=== PATIENT | male | born 1975 | race Caucasian/White ===

== ENCOUNTER 2022-06-16 16:45 | Inpatient (IN) | payer MEDICAID ==
[~2022-06-16] VITALS: Ht 172.7 cm; Wt 45.4 kg
--- NOTE | 2022-06-16 16:59 | NUR ---
SOB WITH COUGH AND CONGESTION X 2 DAYS
--- NOTE | 2022-06-16 17:10 | NUR ---
RT AT BEDSIDE
--- NOTE | 2022-06-16 17:30 | NUR ---
PT W/ LFA FISTULA FOR HEMODIALYSIS
[2022-06-16 17:34] LABS: BASOPHILS # (AUTO) 0.1 K/uL (0.0-0.2); BASOPHILS % (AUTO) 0.4 % (0.0-2.0); EOSINOPHILS % (AUTO) 0.9 % (0.0-6.0); HEMATOCRIT 25 % (39-51); HEMOGLOBIN 8.1 g/dL (13.5-17.5); LYMPHOCYTES # (AUTO) 1.3 K/uL (0.8-4.8); LYMPHOCYTES % (AUTO) 7.2 % (20.0-44.0); MEAN CORPUSCULAR HGB CONC 32 g/dl (31.0-36.0); MEAN CORPUSCULAR VOLUME 88 fL (80-96); MONOCYTES # (AUTO) 0.6 K/uL (0.1-1.30); MONOCYTES % (AUTO) 3.3 % (2.0-12.0); NEUTROPHILS # (AUTO) 15.3 K/uL (1.8-8.9); NEUTROPHILS % (AUTO) 88.2 % (43.0-81.0); PLATELET COUNT (AUTO) 187 K/uL (150-450); RED BLOOD CELL COUNT(AUTO) 2.86 MIL/uL (4.5-6.0); WHITE BLOOD COUNT (AUTO) 17.3 K/uL (4.3-11.0)
[2022-06-16 17:51] LABS: CALCIUM, SERUM 9.7 mg/dL (8.5-10.1); CARBON DIOXIDE 26 mmol/L (21-32); CHLORIDE 96 mmol/L (98-107); GLUCOSE 112 mg/dL (74-106); SODIUM SERUM 135 mmol/L (136-145); UREA NITROGEN, BLOOD 73 mg/dL (7-18)
[2022-06-16 18:03] LABS: ALANINE AMINOTRANSFERASE 13 U/L (12-78); ALBUMIN 3.7 g/dL (3.4-5.0); ALKALINE PHOSPHATASE 111 U/L (46-116); ASPARTATE AMINOTRANSFERASE 14 U/L (15-37); BILIRUBIN,DIRECT 0.2 mg/dL (0.0-0.2); BILIRUBIN,TOTAL 0.7 mg/dL (0.2-1.0)
--- NOTE | 2022-06-16 18:30 | NUR ---
bipap settings tolerated by pt
--- NOTE | 2022-06-16 18:37 | NUR ---
COVID SWAB COLLECTED AND SENT TO LAB
[2022-06-16 18:58] LABS: BAND % (MANUAL) 2 % (0.0-5.0); LYMPHOCYTES % (MANUAL) 4 % (16-48); MONOCYTES % (MANUAL) 2 % (0-11.0); NEUTROPHILS % (MANUAL) 92 (42-76)
[2022-06-16] MEDS ORDERED: CEFTRIAXONE 1GM BAG (ER ONLY) 50 ML IV ONE (18:59)
[2022-06-16] MEDS ORDERED: VANCOMYCIN 1 GM in IV D5W 250 ML IV ONE (19:00)
[2022-06-16] MEDS ORDERED: CEFTRIAXONE 1GM BAG (ER ONLY) 1 GM/50 ML PIGGYBACK IV ONE (19:00)
[2022-06-16] MEDS ORDERED: ALBUTEROL FS 2.5 MG/3 ML VIAL.NEB NEB ONE (19:00)
--- NOTE | 2022-06-16 19:05 | NUR ---
FOLLOWED UP VANCOMYCIN MEDICATION W/ PHARMACY
[2022-06-16] MEDS ORDERED: ALBUTEROL FS 2.5 MG/3 ML VIAL.NEB ONE (19:37)
--- NOTE | 2022-06-16 19:39 | NUR ---
RT AT PT'S BEDSIDE FOR BREATHING TX
--- NOTE | 2022-06-16 19:40 | NUR ---
PT TIOLERATING BIPAP SETTINGS AT 97% IPAP 15 EPAP 5 RATE 15 FIO2 60%
[2022-06-16] MEDS ORDERED: VANCOMYCIN 1 GM VIAL ONE (20:01)
--- NOTE | 2022-06-16 20:31 | NUR ---
DR. KAITY RUIZ ON PHONE CALL WITH DR. LITTLE ADMITTING MD
[2022-06-16] MEDS ORDERED: MAGNESIUM HYDROXIDE 30 ML UDC PO PRN (22:00)
[2022-06-16] MEDS ORDERED: ACETAMINOPHEN 325 MG TABLET PO PRN (22:00)
[2022-06-16] MEDS ORDERED: Z GUARD REMEDY 4 OZ OINT TP PRN (22:00)
[2022-06-16] MEDS ORDERED: MAG HYDROX/AL HYDROX/SIMETH 30 ML UDC PO PRN (22:00)
[2022-06-16] MEDS ORDERED: HYDROCODONE/APAP 5/325MG TABLET PO PRN (22:00)
[2022-06-16] MEDS ORDERED: ZOLPIDEM TARTRATE 5 MG TABLET PO PRN (22:00)
[2022-06-16] MEDS ORDERED: ONDANSETRON HCL/PF 4 MG/2 ML VIAL IVP PRN (22:00)
--- NOTE | 2022-06-16 22:40 | NUR ---
REPORT GIVEN TO [facility] RN FOR CHANI
--- NOTE | 2022-06-16 22:48 | NUR ---
RN INITIAL NOTE PT ARRIVED TO UNIT VIA GURNEY, ABLE TO AMBULATE FROM GURNEY TO BED. PT RECEIVED ON BIPAP WITH SETTING 15/5, RATE 15, FIO2 60%; WITH CHANGE TO 18/10, SAME FIO2 AND RATE WITH O2SAT OF 98%. APPEARS SOB AND NOTED TO HAVE NON-PRODUCTIVE COUGH; NO OTHER S/S OF RESP DISTRESS, NON-LABORED AND EQUAL BREATHING. PT ATTACHED TO BEDSIDE MONITOR, ST WITH HR OF 105. SKIN ASSESSED WITH NO WOUNDS NOTED. IV ACCESS ON RAC 18G AND RFA 18G INTACT AND PATENT, FLUSHES EASILY WITH NO RESISTANCE; NO MEDS/FLUIDS INFUSING THROUGH. LFA AV FISTULA INTACT AND PATENT, THRILL PRESENT AND BRUIT AUSCULTATED. HD NURSE AT BEDSIDE FOR EMERGENCY HD. BED IN LOWEST POSITION, CALL LIGHT WITHIN REACH, SIDE RAILS UP X2. WILL INITIATE PLAN OF CARE.
--- NOTE | 2022-06-16 22:56 | NUR ---
PT TRANSFERRED TO ICU 256 VIA ACLS PROTOCOL WITH RT. ALL BELONGINGS AND CELLPHONE WITH PT.
[2022-06-16 23:00] VITALS: BP 206/121
[2022-06-16] MEDS ORDERED: CLON0.3T MT (23:02)
[2022-06-16] MEDS ORDERED: HYDR100T27 MT (23:02)
--- NOTE | 2022-06-16 23:33 | NUR ---
RT BIPAP settings changed per MD orders due to Increased work of breathing and SpO2 89%. IPAP 18 and EPAP 10. SpO2 improved to 93%. Will cont to monitor. Addendum: 06/17/22 at 0152 by GURMEET OLIVAS RT Amended: Links added.
[2022-06-17] VITALS (39 sets, daily range): BP systolic 111–213; BP diastolic 58–130
--- NOTE | 2022-06-17 00:18 | NUR ---
RN NOTE PT'S BP NOTED TO BE 206/121 WITH HR OF 107. ORDER RECEIVED FROM [facility]NA[facility] FOR HYDRALAZINE 10 MG IV Q4H PRN SBP >160. ORDER OBTAINED AND CARRIED OUT.
[2022-06-17] MEDS: hydrALAZINE HCL IV 20 MG VIAL IV PRN ×4 (00:20→21:35)
--- NOTE | 2022-06-17 01:42 | NUR ---
RN NOTE BP STILL NOTED TO BE ELEVATED AFTER HYDRALAZINE WITH BP OF 199/116. RECONCILED MED LIST CHECKED, PT NOTED TO TAKE CLONIDINE 0.3 MG TID AT HOME. ORDER OBTAINED FROM [facility] TO CONTINUE. ORDER CARRIED OUT.
[2022-06-17] MEDS: CLONIDINE HCL 0.1 MG TABLET PO SCH ×4 (01:43→20:25)
[2022-06-17 04:58] LABS: BASOPHILS % (AUTO) 0.3 % (0.0-2.0); EOSINOPHILS % (AUTO) 0.4 % (0.0-6.0); HEMATOCRIT 22 % (39-51); HEMOGLOBIN 7.2 g/dL (13.5-17.5); LYMPHOCYTES # (AUTO) 0.8 K/uL (0.8-4.8); LYMPHOCYTES % (AUTO) 4.6 % (20.0-44.0); MEAN CORPUSCULAR HGB CONC 32 g/dl (31.0-36.0); MEAN CORPUSCULAR VOLUME 89 fL (80-96); MONOCYTES # (AUTO) 0.7 K/uL (0.1-1.30); NEUTROPHILS % (AUTO) 90.7 % (43.0-81.0); PLATELET COUNT (AUTO) 128 K/uL (150-450); RED BLOOD CELL COUNT(AUTO) 2.53 MIL/uL (4.5-6.0); WHITE BLOOD COUNT (AUTO) 16.5 K/uL (4.3-11.0)
[2022-06-17 05:24] LABS: CALCIUM, SERUM 9.1 mg/dL (8.5-10.1); MAGNESIUM 2.1 mg/dL (1.8-2.4); PHOSPHORUS 6.2 mg/dL (2.5-4.9); POTASSIUM 5.5 mmol/L (3.5-5.1)
[2022-06-17 05:41] LABS: CREATININE 7.8 mg/dL (0.6-1.3)
--- NOTE | 2022-06-17 05:54 | NUR ---
RN NOTE PT'S BP REMAINS HIGH AFTER 2 DOSES GIVEN OF CLONIDINE AND HYDRALAZINE EACH. PT NOTED TO BE RESTLESS AND MOVING AROUND A LOT IN BED WITH HR HIGH 160. ERIBERTO LITTLE NOTIFIED AND ORDERED ATIVAN 1 MG IV ONCE. ORDER CARRIED OUT.
[2022-06-17] MEDS ORDERED: LORAZEPAM INJ 2 MG/ML VIAL IV ONE (06:00)
--- NOTE | 2022-06-17 06:32 | NUR ---
RN NOTE PT RESTLESS AND HR HIGH 166. ATIVAN 1 MG ONCE ADMINISTERED TO PT.
--- NOTE | 2022-06-17 06:53 | NUR ---
DRAWER IN HAND CLOSING NOTE PT REMAINS IN BED, AWAKE, A&O X4, APPEARS RESTLESS. CONTINUES TO BE ON BIPAP WITH SETTING 18/10, RATE 15, FIO2 40%; CONTINUES TO BE SOB AND TACHYPNEIC WITH O2SAT RANGING 98%-100%; NO OTHER S/S OF RESP DISTRESS, NON-PRODUCTIVE; NON-LABORED AND EQUAL BREATHING. ATTACHED TO BEDSIDE MONITOR, ST WITH HR HIGH 166. LEFT AV FISTULA INTACT WITH THRILL PALPABLE AND BRUIT AUSCULTATED. IV ACCESS ON RAC AND RFA 18G INTACT AND PATENT, FLUSHES EASILY WITH NO RESISTANCE; NO MEDS/FLUIDS INFUSING THROUGH. ALL DUE MEDS ADMINISTERED DURING THE NIGHT. BED IN LOWEST POSITION, CALL LIGHT WITHIN REACH, SIDE RAILS UP X3. WILL ENDORSE TO DAYSHIFT NURSE TO CONTINUE CARE.
[2022-06-17] MEDS: PANTOPRAZOLE 40 MG TABLET.DR PO SCH (08:57)
[2022-06-17] MEDS ORDERED: VANCOMYCIN POST DIALYSIS 500MG IV PRN ×2 (10:00)
[2022-06-17] MEDS: hydrALAZINE HCL 50 MG TABLET PO SCH (17:25)
[2022-06-17] MEDS: SEVELAMER CARBONATE 800 MG TABLET PO SCH ×2 (17:25→18:19)
[2022-06-17] MEDS: CEFEPIME 1 GM in IV D5W 50 ML IV SCH (18:16)
[2022-06-17] MEDS: LABETALOL 20 MG/4 ML VIAL IV PRN ×2 (18:47→22:47)
[2022-06-17] MEDS ORDERED: CEFTRIAXONE 1 G in IV D5W 50 ML IV SCH (19:00)
[2022-06-17] MEDS ORDERED: NITROGLYCERIN 0.4 MG/TAB BOTTLE SL PRN (19:00)
[2022-06-17] MEDS ORDERED: VANCOMYCIN 1 GM in IV D5W 250ml IV ONE (20:00)
--- NOTE | 2022-06-17 20:47 | NUR ---
REGISTERED NURSE BEHAVIORAL HEALTH OPENING NOTE PT RECEIVED IN BED, AWAKE, A&O X4, CALM, COOPERATIVE. PT ON BIPAP WITH SETTINGS OF 18/10, RATE 15, FIO2 30%; CURRENT O2SAT OF 99%; NO S/S OF RESP DISTRESS, NO SOB OR COUGH, NON-LABORED AND EQUAL BREATHING. PT ATTACHED TO BEDSIDE MONITOR, SR WITH HR OF 92. IV ACCESS ON RAC AND RFA 18G INTACT AND PATENT, FLUSHES EASILY WITH NO RESISTANCE. LEFT AV FISTULA INTACT, THRILL PALPATED AND BRUIT AUSCULTATED. BED IN LOWEST POSITION, CALL LIGHT WITHIN REACH, SIDE RAILS UP X3. WILL CONTINUE TO MONITOR THROUGHOUT THE NIGHT.
--- NOTE | 2022-06-17 21:36 | NUR ---
RN NOTE PT'S BP 192/129, HR 82. PT ADMINISTERED HYDRALAZINE 10 MG IV. WILL MONITOR FOR EFFECTIVENESS.
--- NOTE | 2022-06-17 22:48 | NUR ---
RN NOTE BP NOTED TO BE 197/117, HR 80. PT ADMINISTERED LABETALOL 10 MG IV. WILL MONITOR FOR EFFECTIVENESS.
[2022-06-18] VITALS (40 sets, daily range): BP systolic 122–225; BP diastolic 60–119
[2022-06-18] MEDS: hydrALAZINE HCL IV 20 MG VIAL IV PRN ×3 (01:35→15:20)
--- NOTE | 2022-06-18 01:35 | NUR ---
RN NOTE BP 192/115, HR 84. HYDRALAZINE 10 MG IV ADMINISTERED. WILL MONITOR FOR EFFECTIVENESS.
[2022-06-18] MEDS: LABETALOL 20 MG/4 ML VIAL IV PRN ×2 (03:24→08:29)
--- NOTE | 2022-06-18 03:25 | NUR ---
RN NOTE BP 172/115, HR 77. LABETALOL 10 MG IV ADMINISTERED. WILL MONITOR FOR EFFECTIVENESS.
[2022-06-18 04:17] LABS: BASOPHILS % (AUTO) 0.5 % (0.0-2.0); EOSINOPHILS % (AUTO) 1.4 % (0.0-6.0); LYMPHOCYTES # (AUTO) 1.2 K/uL (0.8-4.8); MEAN CORPUSCULAR HGB CONC 33 g/dl (31.0-36.0); MEAN CORPUSCULAR VOLUME 88 fL (80-96); MONOCYTES # (AUTO) 0.4 K/uL (0.1-1.30); MONOCYTES % (AUTO) 4.8 % (2.0-12.0); NEUTROPHILS # (AUTO) 7.4 K/uL (1.8-8.9); NEUTROPHILS % (AUTO) 80.3 % (43.0-81.0); PLATELET COUNT (AUTO) 80 K/uL (150-450); WHITE BLOOD COUNT (AUTO) 9.2 K/uL (4.3-11.0)
[2022-06-18 04:23] LABS: HEMATOCRIT 20 % (39-51); HEMOGLOBIN 6.7 g/dL (13.5-17.5)
[2022-06-18 04:28] LABS: CREATININE 6.9 mg/dL (0.6-1.3)
[2022-06-18 04:30] LABS: POTASSIUM 6.2 mmol/L (3.5-5.1)
--- NOTE | 2022-06-18 04:31 | NUR ---
RN NOTE CRITICALS RECEIVED FROM LAB, HGB 6.7, HCT 20, POTASSIUM 6.2 AND INFORMED JOSE LOPEZ PT IS A HD PT AND NO SIGNS OF BLEEDING NOTED. AWAITING RESPONSE.
--- NOTE | 2022-06-18 04:58 | NUR ---
RN NOTE ORDERS RECEIVED FROM JOSE LOPEZ. 1 UNIT PRBC, KAYEXALATE 15 GM, D50, REGULAR INSULIN 8 UNITS IVP, 1 AMPULE SODIUM BICARB. ORDERS CARRIED OUT. Addendum: 06/18/22 at 0545 by PRINCESS VERONA GLEZ SODIUM BICARB 50 MEQ. DISREGARD D50
[2022-06-18] MEDS: CLONIDINE HCL 0.1 MG TABLET PO SCH ×2 (05:03→13:18)
[2022-06-18] MEDS ORDERED: INSULIN REGULAR, HUMAN 100 UNIT/ML 3 ML VIAL IV ONE (05:15)
[2022-06-18] MEDS ORDERED: SODIUM POLYSTYRENE SULFONATE 15 G/60 ML BOTTLE PO ONE (05:15)
[2022-06-18] MEDS ORDERED: SODIUM BICARBONATE SYR 50 MEQ/50 ML DISP.SYRIN IV ONE (05:15)
--- NOTE | 2022-06-18 05:45 | NUR ---
RN NOTE FOR REGULAR INSULIN, APPROVALS BOTH RECEIVED FROM TONI HUFFMAN NURSE AND [facility] CONSULTANT. Addendum: 06/18/22 at 0546 by PRINCESS VERONA GLEZ TO USE OTHER PT'S REGULAR INSULIN FOR NOW.
--- NOTE | 2022-06-18 06:53 | NUR ---
FIGHTER PILOT CLOSING NOTE PT REMAINS IN BED, AWAKE, A&O X4,SLEPT INTERMITTENTLY THROUGHOUT THE NIGHT. CONTINUES TO BE ON BIPAP WITH SETTINGS OF 18/10, RATE 15, FIO2 30%; O2SAT RANGED FROM 98%-100%; NO S/S OF RESP DISTRESS, NO SOB OR COUGH, NON-LABORED AND EQUAL BREATHING. ATTACHED TO BEDSIDE MONITOR, SR WITH HR RANGING FROM 74- 92 WITH SBP HIGH 197. IV ACCESS ON RAC AND RFA 18G INTACT AND PATENT, FLUSHES EASILY WITH NO RESISTANCE; NO MEDS/FLUIDS INFUSING THROUGH. LEFT AV FISTULA INTACT, THRILL PALPATED AND BRUIT AUSCULTATED. ALL DUE MEDS ADMINISTERED DURING THE NIGHT. BED IN LOWEST POSITION, CALL LIGHT WITHIN REACH, SIDE RAILS UP X3. WILL ENDORSE TO DAYSHIFT NURSE TO CONTINUE CARE.
--- NOTE | 2022-06-18 07:20 | NUR ---
FIRE PREVENTION CAPTAIN OPENING NOTES: RECEIVED PATIENT IN JOE ON BIPAP WITH SETTING 18/10, RATE 15, FIO2 30%; WITH O2SAT OF 98%. NO SOB NOTED ; NO OTHER S/S OF RESP DISTRESS, NON-LABORED AND EQUAL BREATHING. PT ATTACHED TO BEDSIDE MONITOR, SR WITH HR OF 75. SKIN ASSESSED WITH NO WOUNDS NOTED. IV ACCESS ON RAC 18G AND RFA 18G INTACT AND PATENT, FLUSHES EASILY WITH NO RESISTANCE; NO MEDS/FLUIDS INFUSING THROUGH. LFA AV FISTULA INTACT AND PATENT, THRILL PRESENT AND BRUIT AUSCULTATED. PT ASKED TO USE THE BATHROOM RT PLACED TOSHA ON NASAL CANNULA AND ASSISTED HIM TO THE COMMODE, NOTED WITH WATERY BM, MANAGER BANQUET RN SAID IS DUE TO KAYEXALATE HE RECEIVED FOR HIS HYPERKALEMIA. BED IN LOWEST POSITION, CALL LIGHT WITHIN REACH, SIDE RAILS UP X2. WILL INITIATE PLAN OF CARE.
[2022-06-18] MEDS: SEVELAMER CARBONATE 800 MG TABLET PO SCH ×2 (07:37→13:17)
[2022-06-18] MEDS: PANTOPRAZOLE 40 MG TABLET.DR PO SCH (07:37)
--- NOTE | 2022-06-18 07:45 | NUR ---
RN NOTES: NOTED BP 205/114, HYDRALAZINE 10 MG IV GIVEN AD ORDERED NEEDED WILL MONITOR
[2022-06-18 08:56] LABS: ABG BASE EXCESS -1.4 mmol/L; ABG OXYGEN SATURATION 94.6 % (92.0-98.5); ABG PCO2 48.2 mmHg (35.0-45.0); ABG PO2 83.8 mmHg (75.0-100.0); AaDO2 73.5 mmHg; COHb 1.3 % (0.5-1.5); MetHb 0.3 % (0.0-1.5); O2Hb 93.1 % (94.0-97.0); SITE, ABG Right Radial; VENT MODE, BG BIPAP 18/5 R 16 30%
[2022-06-18] MEDS: hydrALAZINE HCL 50 MG TABLET PO SCH ×2 (09:00→13:18)
--- NOTE | 2022-06-18 09:00 | NUR ---
RN NOTES: PT NOT AWAKE,ON BIPAP UNABLE TO SWALLOW HIS MEDICINE
[2022-06-18] MEDS: PROPOFOL 100 ML IV PRN ×2 (09:49→17:33)
[2022-06-18] MEDS ORDERED: SODIUM POLYSTYRENE SULF. PWD 15 GM UDC PO ONE (10:30)
[2022-06-18 10:45] LABS: ABG BASE EXCESS -0.6 mmol/L; ABG OXYGEN SATURATION 99.7 % (92.0-98.5); ABG PCO2 43.9 mmHg (35.0-45.0); ABG PH 7.369 (7.350-7.450); ABG PO2 381.1 mmHg (75.0-100.0); MetHb 0.1 % (0.0-1.5); O2Hb 98.6 % (94.0-97.0); SITE, ABG Right Femoral
--- NOTE | 2022-06-18 11:08 | NUR ---
RN NOTES: PT WENT TO HAVE CT SCAN OF BRAIN DONE ACOMPANIED WITH CHARGE NURSE DAWNA AND RT TUCKER
--- NOTE | 2022-06-18 11:45 | NUR ---
PATIENT SBP REMAINS >200. NTG DRIP ORDER PER DR. COKER/DR. CARDOZA. INITIATED PER PROTOCOL.
[2022-06-18] MEDS ORDERED: NTG 50 MG/D5W250 ML BOTTL 250 ML IV PRN (12:00)
[2022-06-18 12:17] LABS: BASOPHILS % (MANUAL) 0 % (0.0-2.0); EOSINOPHILS % (MANUAL) 2 % (0-4); LYMPHOCYTES % (MANUAL) 11 % (16-48); MONOCYTES % (MANUAL) 5 % (0-11.0); NEUTROPHILS % (MANUAL) 82 (42-76)
[2022-06-18] MEDS: NITROGLYCERIN 30 GM TUBE TP SCH ×3 (12:55→23:26)
--- NOTE | 2022-06-18 12:57 | NUR ---
RN NOTES: JAVA TECHNICAL ARCHITECT OVIDIO FINISHED DIALYSIS AFTER 1.5 HOUR DUE TO HIGH BP 240/140.1 UNIT RBC WAS GIVEN , 1 LITER OUT. AFTER DIALYSIS BP NOTED TO BE 176/86
[2022-06-18] MEDS ORDERED: ETOMIDATE 2 MG/ML VIAL IV ONE (14:07)
[2022-06-18] MEDS ORDERED: ROCURONIUM BROMIDE 50 MG/5 ML IV ONE (14:07)
--- NOTE | 2022-06-18 15:00 | NUR ---
RN NOTES: SPOKE TO IMI PHARMACIST PT HAD DIALYSIS BUT VANCO RANDOM WAS 28 WHO SAID DO NOT GIVE ANY DOSE TODAY
--- NOTE | 2022-06-18 15:54 | NUR ---
RN NOTES: SEEN BY DR LIZAMA NEUROLOGIST WITH ORDER TO REPEAT CT HEAD, SAID BRAINS SEEMS SWOLLEN
[2022-06-18] MEDS ORDERED: PHARMACY TO CHANGE PO MEDS TO GT/NG XX PRN (16:00)
[2022-06-18] MEDS ORDERED: MAG HYDROX/AL HYDROX/SIMETH 30 ML UDC GT PRN (16:30)
[2022-06-18] MEDS ORDERED: MAGNESIUM HYDROXIDE 30 ML UDC GT PRN (16:30)
[2022-06-18] MEDS ORDERED: NIFEdipine XL (30MG) 30 MG TAB PO SCH (17:00)
[2022-06-18] MEDS: SEVELAMER CARBONATE 800 MG POWD.PACK GT SCH (17:08)
[2022-06-18] MEDS: hydrALAZINE HCL 50 MG TABLET GT SCH (17:09)
[2022-06-18] MEDS: CEFEPIME 1 GM in IV D5W 50 ML IV SCH (17:15)
[2022-06-18] MEDS: LABETALOL HCL (100MG) 100 MG TABLET PO SCH (18:00)
--- NOTE | 2022-06-18 18:00 | NUR ---
RN NOTES: SISTER ROWAN AND ALICIA MURRAY PICKED UP ALL BELONGING INCLUDING CELL PHONE
--- NOTE | 2022-06-18 19:30 | NUR ---
RECEIVED PATIENT SEDATED, WITH ETT CONNECTED TO VENT SETTING AC 16, TV 450, PEEP 5,FIO2 IS 50%. SETTING PRESCRIBED, NO SOB NOTED. IV ACCESS ON RAC #18, RFA #18, BRITTNEY ML #18, LT AV FISTULA IN PLACE. PROPOFOL INFUSING AT 40 MCG/KG/MIN, NITORGLYCERINE DRIP INFUSING AT 80 MCG/MIN. SAFETY MEASURES IN PLACE. WILL CONTINUE PLAN OF CARE.
--- NOTE | 2022-06-18 19:38 | NUR ---
RN CLOSING NOTE PATIENT IS SEDATED, PROPOFOL RUNNING AT 40 MCG/KG/MIN, WITH ETT CONNECTED TO VENT SETTING AC 16,VT 450, PEEP 5,FIO2 IS 50%.NO SOB NOTED. PRESCRIBED,. NITORGLYCERINE DRIP RUNNING AT 80 MCG/MIN, ALL DUE MEDS GIVEN MD ORDERED TURNED AND REPOSITIONED EVERY 2 HOURS, KEPT CLEAN AND DRY ALL THE TIME, KEPT HEAD OF THE BED ELEVATED ALL THE TIME, ALL SAFETY MEASURES IN PLACE. ENDORSED NEXT COMING SHIFT FOR CONTINUITY OF CARE.
[2022-06-18] MEDS: CLONIDINE HCL 0.1 MG TABLET GT SCH (21:07)
[2022-06-18] MEDS: NTG 50 MG/D5W250 ML BOTTL 250 ML IV PRN (22:10)
[2022-06-19] VITALS (96 sets, daily range): BP systolic 103–171; BP diastolic 49–115
[2022-06-19] MEDS: PROPOFOL 100 ML IV PRN ×6 (00:16→22:23)
[2022-06-19 04:23] LABS: BASOPHILS % (AUTO) 0.1 % (0.0-2.0); EOSINOPHILS % (AUTO) 1.6 % (0.0-6.0); HEMATOCRIT 21 % (39-51); LYMPHOCYTES # (AUTO) 0.5 K/uL (0.8-4.8); LYMPHOCYTES % (AUTO) 5.3 % (20.0-44.0); MEAN CORPUSCULAR HGB CONC 34 g/dl (31.0-36.0); MEAN CORPUSCULAR VOLUME 87 fL (80-96); MONOCYTES # (AUTO) 0.5 K/uL (0.1-1.30); MONOCYTES % (AUTO) 4.9 % (2.0-12.0); NEUTROPHILS # (AUTO) 9.1 K/uL (1.8-8.9); NEUTROPHILS % (AUTO) 88.1 % (43.0-81.0); PLATELET COUNT (AUTO) 60 K/uL (150-450); WHITE BLOOD COUNT (AUTO) 10.4 K/uL (4.3-11.0)
[2022-06-19 04:31] LABS: CALCIUM, SERUM 8.8 mg/dL (8.5-10.1); CREATININE 6.9 mg/dL (0.6-1.3); POTASSIUM 4.2 mmol/L (3.5-5.1)
[2022-06-19] MEDS: NITROGLYCERIN 30 GM TUBE TP SCH ×4 (05:40→23:16)
[2022-06-19] MEDS: CLONIDINE HCL 0.1 MG TABLET GT SCH ×3 (05:40→20:54)
--- NOTE | 2022-06-19 06:56 | NUR ---
PATIENT SEDATED, WITH ETT CONNECTED TO VENT SETTING AC 16, TV 450, PEEP 5,FIO2 IS 50%. SETTING PRESCRIBED, NO SOB NOTED. IV ACCESS ON RAC #18, RFA #18, BRITTNEY ML #18, LT AV FISTULA IN PLACE. PROPOFOL INFUSING AT 50 MCG/KG/MIN, NITORGLYCERINE DRIP INFUSING AT 55 MCG/MIN. ALL DUE MEDS GIVEN MD ORDERED TURNED AND REPOSITIONED EVERY 2 HOURS, KEPT CLEAN AND DRY ALL THE TIME, KEPT HEAD OF THE BED ELEVATED ALL THE TIME, SAFETY MEASURES MAINTAINED. WILL ENDORSED TO NEXT SHIFT NURSE FOR CONTINUITY OF CARE.
--- NOTE | 2022-06-19 08:00 | NUR ---
rn notes received patient sedated Diprivan 50mcg/kg/min, iv access on michael midline intact. infusing nitroglycerin 55 mcg/kg/min, and tko @10ml/hr. patient has no acute respiratory distress, tolerating ETT setting well ac-16, tv-450, fio2-50, p-5. ngt intact, due medication administered, assist turn and reposition q 2 hr, suction, mouth care done . patient has av shunt on left arm intact. rechecked bilateral restrain ntact for circulation q 2 hr. will follow up.
[2022-06-19 08:13] LABS: BAND % (MANUAL) 9 % (0.0-5.0); EOSINOPHILS % (MANUAL) 1 % (0-4); LYMPHOCYTES % (MANUAL) 6 % (16-48); MONOCYTES % (MANUAL) 4 % (0-11.0); NEUTROPHILS % (MANUAL) 80 (42-76)
--- NOTE | 2022-06-19 09:00 | NUR ---
rn notes no sedation vacation today per Dr Chanel.
[2022-06-19] MEDS: SEVELAMER CARBONATE 800 MG POWD.PACK GT SCH ×3 (09:41→18:18)
[2022-06-19] MEDS: LABETALOL HCL (100MG) 100 MG TABLET PO SCH ×2 (09:42→18:28)
[2022-06-19] MEDS: hydrALAZINE HCL 50 MG TABLET GT SCH ×3 (09:43→18:18)
[2022-06-19] MEDS: PANTOPRAZOLE 40 MG/PACK PACK NG SCH (10:18)
[2022-06-19] MEDS: HYDROCODONE/APAP 5/325MG TABLET GT PRN (11:38)
--- NOTE | 2022-06-19 11:38 | NUR ---
rn notes administered narco 5/325 mg po prn for generalized pain. bp 103/52, p-74, r-23. also titrated nitroglycerine per protocol .
--- NOTE | 2022-06-19 13:50 | NUR ---
RN NOTES HOSPITALIST EDISON DNP AT BEDSIDE AND PATIENTS FAMILY WEEL EXPLAIN PATIENT CONDITION, AND PLAN OF CARE. TITRATED DIPRIVAN, AND NITROGLYCERIN PER PROTOCOL.
[2022-06-19] MEDS: NTG 50 MG/D5W250 ML BOTTL 250 ML IV PRN (14:11)
--- NOTE | 2022-06-19 15:32 | NUR ---
RN NOTES GET NGTF NEPRO @35ML/HR PER DIETITIAN'S ORDER. ORDER TAKEN AND CARRIED OUT.
[2022-06-19] MEDS ORDERED: NEPRO 1,000 ML BOTTLE GT SCH (17:00)
[2022-06-19] MEDS: NEPRO 1,000 ML BOTTLE GT SCH (18:12)
[2022-06-19] MEDS: CEFEPIME 1 GM in IV D5W 50 ML IV SCH (18:17)
--- NOTE | 2022-06-19 18:30 | NUR ---
RN NOTES PM CARE DONE, SUCTION, MOUTH CARE , DUE MEDICATION ADMINISTERED, STARTED NGT FEEDING NEPRO @35ML/HR. INFUSING DIPRIVAN 65MCG/KG/MIN, AND NITROGLYCERINE 20MCG/KG/MIN. ASSIST TURN AND REPOSTION Q 2 HR. NO URINE OUTPUT. FAMILY NEXT TO THE BED. ENDORSED ONCOMING NURSE CHANI.
--- NOTE | 2022-06-19 19:30 | NUR ---
PATIENT SEDATED, WITH ETT CONNECTED TO VENT SETTING AC 16, TV 450, PEEP 5,FIO2 IS 40%. SETTING PRESCRIBED, NO SOB NOTED. IV ACCESS ON RAC #18, RFA #18, BRITTNEY ML #18, LT AV FISTULA IN PLACE. PROPOFOL INFUSING AT 65 MCG/KG/MIN, NITORGLYCERINE DRIP INFUSING AT 20 MCG/MIN. ALL DUE MEDS GIVEN MD ORDERED TURNED AND REPOSITIONED EVERY 2 HOURS, KEPT CLEAN AND DRY ALL THE TIME, KEPT HEAD OF THE BED ELEVATED ALL THE TIME, SAFETY MEASURES IN PLACE. WILL CONTINUE PLAN OF CARE.
[2022-06-20] VITALS (92 sets, daily range): BP systolic 118–176; BP diastolic 57–89
[2022-06-20] MEDS: PROPOFOL 100 ML IV PRN ×5 (01:46→19:55)
[2022-06-20] MEDS: HYDROCODONE/APAP 5/325MG TABLET GT PRN (04:03)
[2022-06-20] MEDS: CLONIDINE HCL 0.1 MG TABLET GT SCH ×3 (04:03→21:02)
[2022-06-20 04:42] LABS: BASOPHILS % (AUTO) 0.2 % (0.0-2.0); EOSINOPHILS % (AUTO) 5.5 % (0.0-6.0); LYMPHOCYTES # (AUTO) 0.9 K/uL (0.8-4.8); LYMPHOCYTES % (AUTO) 9.4 % (20.0-44.0); MEAN CORPUSCULAR HGB CONC 34 g/dl (31.0-36.0); MEAN CORPUSCULAR VOLUME 87 fL (80-96); MONOCYTES # (AUTO) 0.7 K/uL (0.1-1.30); MONOCYTES % (AUTO) 7.2 % (2.0-12.0); NEUTROPHILS # (AUTO) 7.2 K/uL (1.8-8.9); NEUTROPHILS % (AUTO) 77.7 % (43.0-81.0); PLATELET COUNT (AUTO) 80 K/uL (150-450); RED BLOOD CELL COUNT(AUTO) 2.24 MIL/uL (4.5-6.0); WHITE BLOOD COUNT (AUTO) 9.2 K/uL (4.3-11.0)
[2022-06-20 05:06] LABS: CALCIUM, SERUM 8.8 mg/dL (8.5-10.1); HEMATOCRIT 20 % (39-51); HEMOGLOBIN 6.6 g/dL (13.5-17.5); POTASSIUM 4.5 mmol/L (3.5-5.1)
[2022-06-20 05:07] LABS: CREATININE 8.6 mg/dL (0.6-1.3)
[2022-06-20] MEDS: NITROGLYCERIN 30 GM TUBE TP SCH ×4 (05:26→23:52)
--- NOTE | 2022-06-20 05:39 | NUR ---
Hgb 6.6, Hct 20. MD notified.
--- NOTE | 2022-06-20 06:54 | NUR ---
PATIENT SEDATED, WITH ETT CONNECTED TO VENT SETTING AC 16, TV 450, PEEP 5,FIO2 IS 40%. SETTING PRESCRIBED, NO SOB NOTED. IV ACCESS ON RAC #18, RFA #18, BRITTNEY ML #18, LT AV FISTULA IN PLACE. PROPOFOL INFUSING AT 60 MCG/KG/MIN, NITORGLYCERINE DRIP INFUSING AT 10 MCG/MIN. ALL DUE MEDS GIVEN MD ORDERED TURNED AND REPOSITIONED EVERY 2 HOURS, KEPT CLEAN AND DRY ALL THE TIME, KEPT HEAD OF THE BED ELEVATED ALL THE TIME, SAFETY MEASURES MAINTAINED. WILL ENDORSE TO NEXT NURSE ON DUTY FOR CONTINUITY OF CARE.
--- NOTE | 2022-06-20 07:00 | NUR ---
RN OPENING NOTES: RECEIVED PATIENT IN BED FROM CUSTOMER EXPERT WITH VENT WITH AC 16, TV 450, FIO2 40% AND PEEP 5. WITH O2SAT OF 100%. PT ATTACHED TO BEDSIDE MONITOR, SR. SKIN ASSESSED WITH NO WOUNDS NOTED. IV ACCESS ON RAC 18G AND RFA 18G INTACT AND PATENT, FLUSHES EASILY WITH NO RESISTANCE; BRITTNEY MIDLINE PATENT. LFA AV FISTULA INTACT AND PATENT, THRILL PRESENT AND BRUIT AUSCULTATED. PT ON NITRO DRIP AT 10 AND PROPOFOL DRIP AT 60. BED IN LOWEST POSITION, CALL LIGHT WITHIN REACH, SIDE RAILS UP. WILL INITIATE PLAN OF CARE.
[2022-06-20] MEDS: PANTOPRAZOLE 40 MG/PACK PACK NG SCH (08:25)
[2022-06-20] MEDS: hydrALAZINE HCL 50 MG TABLET GT SCH ×3 (08:25→19:16)
[2022-06-20] MEDS: SEVELAMER CARBONATE 800 MG POWD.PACK GT SCH ×3 (08:25→19:15)
[2022-06-20] MEDS: LABETALOL HCL (100MG) 100 MG TABLET PO SCH ×2 (08:25→19:16)
--- NOTE | 2022-06-20 09:00 | NUR ---
RN NOTE ABG'S TAKEN. RT SAID LOOKS GOOD. RT ALSO COLLECTED SPUTUM SAMPLE AND SENT TO LAB
[2022-06-20 09:06] LABS: ABG BASE EXCESS -2.8 mmol/L; ABG OXYGEN SATURATION 98.8 % (92.0-98.5); ABG PCO2 43.6 mmHg (35.0-45.0); ABG PH 7.337 (7.350-7.450); ABG PO2 154.1 mmHg (75.0-100.0); MetHb 0.5 % (0.0-1.5); O2Hb 97.3 % (94.0-97.0); PEEP,BG 5 cm H2O; SITE, ABG Left Brachial; VT, ABG 450 mL
[2022-06-20 10:18] LABS: BAND % (MANUAL) 6 % (0.0-5.0); EOSINOPHILS % (MANUAL) 5 % (0-4); LYMPHOCYTES % (MANUAL) 8 % (16-48); MONOCYTES % (MANUAL) 4 % (0-11.0); NEUTROPHILS % (MANUAL) 77 (42-76)
--- NOTE | 2022-06-20 12:15 | NUR ---
RN NOTE CLINIC BUSINESS MANAGER CAME BY TO CHECK PATIENT. SAID TO TITRATE OFF NITRO BUT RESTART IF SYSTOLIC BP >160
--- NOTE | 2022-06-20 16:16 | NUR ---
RN NOTE BLOOD TRANSFUSION STARTING. RUNNING CONCURRENTLY WITH DIALYSIS. 358 ML VOLUME
--- NOTE | 2022-06-20 16:40 | NUR ---
RN NOTE BLOOD TRANSFUSION FINISHED
[2022-06-20] MEDS: PANTOPRAZOLE 40 MG VIAL IV SCH (19:15)
--- NOTE | 2022-06-20 19:25 | NUR ---
RN CLOSING NOTE PATIENT IS SEDATED, PROPOFOL RUNNING AT 60 MCG/KG/MIN, WITH ETT CONNECTED TO VENT SETTING AC 16,VT 450, PEEP 5.NO SOB NOTED. DIALYSIS DONE AND 1 L TAKEN OUT., ALL DUE MEDS GIVEN MD ORDERED TURNED AND REPOSITIONED EVERY 2 HOURS, KEPT CLEAN AND DRY ALL THE TIME, KEPT HEAD OF THE BED ELEVATED ALL THE TIME, ALL SAFETY MEASURES IN PLACE. ENDORSED NEXT COMING SHIFT FOR CONTINUITY OF CARE.
[2022-06-20] MEDS: CEFEPIME 1 GM in IV D5W 50 ML IV SCH (19:31)
--- NOTE | 2022-06-20 20:00 | NUR ---
LICENSED PSYCHIATRIC TECHNICIAN OPENING RECEIVED PATIENT IN BED, SEDATED. ON [facility] VENT: AC 16, TV 450, FIO2 40% AND PEEP 5.TOLERATING WELL. 02SAT OF 100%. IV ACCESS ON RAC #18; RFA #18; BRITTNEY MIDLINE, PATENT AND INTACT. HD ACCESS: LFA AV FISTULA, THRILL PRESENT AND BRUIT AUSCULTATED. ON PROPOFOL DRIP AT 60 mcg/kg/min. NO SKIN ISSUES. ON BILATERAL SOFT RESTRAINTS, CIRCULATION CHECKED EVERY 2H. DUE MEDS GIVEN. TURNED AND REPOSITIONED. SAFETY MEASURES MAINTAINED. WILL CONTINUE TO MONITOR.
[2022-06-20] MEDS: NEPRO 1,000 ML BOTTLE GT SCH (23:53)
[2022-06-21] VITALS (54 sets, daily range): BP systolic 133–179; BP diastolic 68–113
[2022-06-21] MEDS: PROPOFOL 100 ML IV PRN ×6 (00:19→20:53)
[2022-06-21] MEDS: CLONIDINE HCL 0.1 MG TABLET GT SCH ×3 (04:32→20:51)
[2022-06-21 05:38] LABS: CREATININE 6.1 mg/dL (0.6-1.3); POTASSIUM 4.3 mmol/L (3.5-5.1)
[2022-06-21 05:55] LABS: BASOPHILS % (AUTO) 0.2 % (0.0-2.0); EOSINOPHILS % (AUTO) 6.2 % (0.0-6.0); LYMPHOCYTES # (AUTO) 0.4 K/uL (0.8-4.8); LYMPHOCYTES % (AUTO) 6.2 % (20.0-44.0); MEAN CORPUSCULAR HGB CONC 33 g/dl (31.0-36.0); MEAN CORPUSCULAR VOLUME 88 fL (80-96); MONOCYTES # (AUTO) 0.6 K/uL (0.1-1.30); MONOCYTES % (AUTO) 8.5 % (2.0-12.0); NEUTROPHILS # (AUTO) 5.6 K/uL (1.8-8.9); NEUTROPHILS % (AUTO) 78.9 % (43.0-81.0); PLATELET COUNT (AUTO) 73 K/uL (150-450); RED BLOOD CELL COUNT(AUTO) 2.27 MIL/uL (4.5-6.0)
[2022-06-21 05:56] LABS: HEMATOCRIT 20 % (39-51)
[2022-06-21 05:57] LABS: HEMOGLOBIN 6.6 g/dL (13.5-17.5)
[2022-06-21] MEDS: NITROGLYCERIN 30 GM TUBE TP SCH ×3 (06:08→20:52)
--- NOTE | 2022-06-21 07:30 | NUR ---
RN OPENING NOTE PT OBSERVED IN BED AND ON MECHANICAL VENT WITH ALL PRESCRIBED SETTINGS TOLERATING WELL O2 SAT 96%. PT IS SEDATED AT THIS TIME WITH DIPRIVAN @60MCG/HR. PT HAD HD YESTERDAY -1000ML. GT IS IN PLACE INFUSING WITH NEPRO 35ML/HR IV ACCESS R AC R UA MIDLINE AND L AV FISTULA. BED IS LOCKED IN LOWEST POSITION X2 BED RAILS UP AND ALL HOSPITAL SAFETY MEASURES ARE IN PLACE WILL CONTINUE TO MONITOR THIS SHIFT.
--- NOTE | 2022-06-21 07:46 | NUR ---
PORTABLE PINCH RIVETER NOTES PATIENT IS SEDATED, PROPOFOL RUNNING AT 60 MCG/KG/MIN, WITH ETT CONNECTED TO VENT SETTING AC 16,VT 450, PEEP 5. NO SOB NOTED. ALL DUE MEDS GIVEN MD ORDERED TURNED AND REPOSITIONED EVERY 2 HOURS, KEPT CLEAN AND DRY ALL THE TIME, KEPT HEAD OF THE BED ELEVATED ALL THE TIME, AM CARE DONE. KEPT COMFORTABLE. ALL SAFETY MEASURES IN PLACE. WILL ENDORSE TO NEXT SHIFT RN FOR CHANI.
[2022-06-21] MEDS: SEVELAMER CARBONATE 800 MG POWD.PACK GT SCH ×3 (08:26→17:31)
[2022-06-21] MEDS: PANTOPRAZOLE 40 MG VIAL IV SCH ×2 (08:27→17:31)
[2022-06-21] MEDS: LABETALOL HCL (100MG) 100 MG TABLET PO SCH ×2 (08:27→17:31)
[2022-06-21] MEDS: hydrALAZINE HCL 50 MG TABLET GT SCH ×3 (08:27→17:32)
--- NOTE | 2022-06-21 10:00 | NUR ---
RN NOTE: GT FEEDING OG TUBE FEEDING PAUSED AT THIS TIME. WILL REINSERT NEW OG TUBE AND VERIFY PLACEMENT WITH CXR
--- NOTE | 2022-06-21 13:00 | NUR ---
RN NOTE: BP MED PT RECEIVING HD AT THIS TIME WILL HOLD BP MED
--- NOTE | 2022-06-21 13:40 | NUR ---
RN NOTE: TRANSFUSION COMPLETE 1 UNIT PRBC TRANSFUSED WITH DIALYSIS WITHOUT COMPLICATION
[2022-06-21 17:12] LABS: EOSINOPHILS % (MANUAL) 2 % (0-4); LYMPHOCYTES % (MANUAL) 9 % (16-48); MONOCYTES % (MANUAL) 9 % (0-11.0); NEUTROPHILS % (MANUAL) 80 (42-76)
[2022-06-21] MEDS: CEFEPIME 1 GM in IV D5W 50 ML IV SCH (17:31)
--- NOTE | 2022-06-21 19:45 | NUR ---
RN CLOSING NOTE PT IS IN BED AND ON MECHANICAL VENT WITH ALL PRESCRIBED SETTINGS TOLERATING WELL O2 SAT 96%. PT IS SEDATED AT THIS TIME WITH DIPRIVAN @70MCG/HR. PT HAD HD TODAY -2500ML. PT RECEIVED 1 UNIT PRBC TODAY. GT IS IN PLACE INFUSING WITH NEPRO 35ML/HR IV ACCESS R AC R UA MIDLINE AND L AV FISTULA. BED IS LOCKED IN LOWEST POSITION X2 BED RAILS UP AND ALL HOSPITAL SAFETY MEASURES ARE IN PLACE WILL ENDORSE TO OPERATIONS PROCESSOR NURSE FOR CHANI.
[2022-06-21] MEDS: ACETAMINOPHEN 650 MG/20.3 ML UDC PO PRN (20:51)
--- NOTE | 2022-06-21 21:00 | NUR ---
ICU/AMPOULE WASHING MACHINE OPERATOR TEMP 100.8 ORAL, GAVE TYLENOL VIA G/TUBE RESIDUALS 125ML. STOP FEEDING RIGHT A/C WAS D/C'D ALSO INCREASED BP 170'S, CHARGE NURSE GAVE PRN HYDRALAZINE. WILL MONITOR THE BP
[2022-06-21] MEDS: hydrALAZINE HCL IV 20 MG VIAL IV PRN (21:29)
[2022-06-22] VITALS (37 sets, daily range): BP systolic 132–193; BP diastolic 60–107
--- NOTE | 2022-06-22 | NUR ---
ICU/DIRECTOR PHARMACOLOGY PT WAS MOVING INCREASED SEDATION TO 80ML/HR. WILL MONITOR THIS PTS BP
[2022-06-22] MEDS: PROPOFOL 100 ML IV PRN ×6 (00:40→23:10)
[2022-06-22] MEDS: hydrALAZINE HCL IV 20 MG VIAL IV PRN ×2 (03:15→21:53)
[2022-06-22 05:14] LABS: BASOPHILS % (AUTO) 0.5 % (0.0-2.0); EOSINOPHILS % (AUTO) 8.2 % (0.0-6.0); HEMATOCRIT 26 % (39-51); HEMOGLOBIN 8.8 g/dL (13.5-17.5); LYMPHOCYTES # (AUTO) 0.7 K/uL (0.8-4.8); LYMPHOCYTES % (AUTO) 8.3 % (20.0-44.0); MEAN CORPUSCULAR HGB CONC 33 g/dl (31.0-36.0); MEAN CORPUSCULAR VOLUME 89 fL (80-96); MONOCYTES # (AUTO) 0.7 K/uL (0.1-1.30); MONOCYTES % (AUTO) 8.4 % (2.0-12.0); NEUTROPHILS % (AUTO) 74.6 % (43.0-81.0); PLATELET COUNT (AUTO) 90 K/uL (150-450); RED BLOOD CELL COUNT(AUTO) 2.95 MIL/uL (4.5-6.0)
[2022-06-22] MEDS: CLONIDINE HCL 0.1 MG TABLET GT SCH ×3 (05:24→21:50)
[2022-06-22 05:52] LABS: ABG BASE EXCESS -3.6 mmol/L; ABG OXYGEN SATURATION 98.9 % (92.0-98.5); ABG PCO2 48.1 mmHg (35.0-45.0); ABG PH 7.295 (7.350-7.450); ABG PO2 173.1 mmHg (75.0-100.0); AaDO2 56.8 mmHg; COHb 0.5 % (0.5-1.5); MetHb 0.4 % (0.0-1.5); PEEP,BG 5 cm H2O; SITE, ABG Right Radial; VENT MODE, BG AC16 450 40% PEEP+5; VT, ABG 450 mL
[2022-06-22 05:54] LABS: CALCIUM, SERUM 9.7 mg/dL (8.5-10.1); CREATININE 6.5 mg/dL (0.6-1.3); POTASSIUM 4.6 mmol/L (3.5-5.1)
--- NOTE | 2022-06-22 07:30 | NUR ---
RN note Received patient in bed, intubated with size 7.5 with marking 24cm at lip. Sedated with propofol running at 55mcg/kg/hr, sedation score 3. Vent set at AC mode 16/min, TV 450mL, FiO2 30% with PEEP of 5cmH2o. SpO2 96%. site monitor showed SR HR 68/min. BP 168/89mmHg. Right UA PICC is dry and patent with NS flush. Bed Is locked and placed in the lowest position. All safety measures have been implemented. Will continue care and monitoring.
[2022-06-22] MEDS: SEVELAMER CARBONATE 800 MG POWD.PACK GT SCH ×3 (08:11→18:35)
[2022-06-22] MEDS: LABETALOL HCL (100MG) 100 MG TABLET PO SCH ×2 (08:12→18:34)
[2022-06-22] MEDS: hydrALAZINE HCL 50 MG TABLET GT SCH ×3 (08:12→18:34)
[2022-06-22] MEDS: PANTOPRAZOLE 40 MG VIAL IV SCH ×2 (08:12→16:32)
[2022-06-22] MEDS: NITROGLYCERIN 30 GM TUBE TP SCH ×2 (08:13→21:51)
[2022-06-22 10:34] LABS: EOSINOPHILS % (MANUAL) 2 % (0-4); LYMPHOCYTES % (MANUAL) 8 % (16-48); MONOCYTES % (MANUAL) 8 % (0-11.0); NEUTROPHILS % (MANUAL) 82 (42-76)
[2022-06-22] MEDS ORDERED: VANCOMYCIN 500 MG in IV D5W 100ml IV ONE (11:00)
--- NOTE | 2022-06-22 13:00 | NUR ---
RN note Pharmacist called and ordered a vancomycin dose as patient's trough level is low. Given at 10:30. Then clarified with renal nurse that patient is having daily HD. Informed pharmacist about the regime and they said to check trough level tomorrow.
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
--- NOTE | 2022-06-22 15:00 | NUR ---
RN note HD started. Vital signs are stable all along.
[2022-06-22] MEDS: NEPRO 1,000 ML BOTTLE GT SCH (15:39)
[2022-06-22] MEDS: METOCLOPRAMIDE HCL 10 MG/2 ML VIAL IV SCH ×2 (16:32→21:53)
[2022-06-22] MEDS: CEFEPIME 1 GM in IV D5W 50 ML IV SCH (17:16)
--- NOTE | 2022-06-22 20:05 | NUR ---
ICU/SENIOR MOBILE DEVELOPER PT WAS GIVEN TYLENOL WITH TEMP. 99.9, WILL MONITOR
--- NOTE | 2022-06-22 21:40 | NUR ---
ICU/RELIGIOUS EDUCATION TEACHER PM MEDICATION GIVEN ALONG WITH PRN HYDRALAZINE FOR SBP 180/107. WILL MONITOR THIS PT.
[2022-06-22] MEDS: ACETAMINOPHEN 650 MG/20.3 ML UDC PO PRN (21:51)
[2022-06-22] MEDS: IV NS 0.9% 250 ML IV PRN (23:23)
[2022-06-23] VITALS (33 sets, daily range): BP systolic 124–174; BP diastolic 62–96
--- NOTE | 2022-06-23 00:28 | NUR ---
ICU/FOREST PATHOLOGY TEACHER SPOT CHECK OF BLOOD SUGAR IS 96. WILL MONITOR
[2022-06-23] MEDS: PROPOFOL 100 ML IV PRN ×5 (03:21→23:11)
--- NOTE | 2022-06-23 04:00 | NUR ---
ICU/CHARGEMASTER ANALYST PT IS HAVING RESIDUAL OVER THE AMOUNT OF THE FEEDING, ALSO PT IS MOVING HELD FEEDING FOR POSSIBLE ASPIRATION.
[2022-06-23] MEDS: METOCLOPRAMIDE HCL 10 MG/2 ML VIAL IV SCH ×4 (04:21→21:04)
[2022-06-23 04:47] LABS: CALCIUM, SERUM 9.9 mg/dL (8.5-10.1); CREATININE 6.1 mg/dL (0.6-1.3); POTASSIUM 4.9 mmol/L (3.5-5.1)
[2022-06-23 04:52] LABS: BASOPHILS # (AUTO) 0.1 K/uL (0.0-0.2); BASOPHILS % (AUTO) 0.6 % (0.0-2.0); HEMATOCRIT 30 % (39-51); HEMOGLOBIN 9.9 g/dL (13.5-17.5); LYMPHOCYTES # (AUTO) 0.9 K/uL (0.8-4.8); LYMPHOCYTES % (AUTO) 9.6 % (20.0-44.0); MEAN CORPUSCULAR HGB CONC 33 g/dl (31.0-36.0); MEAN CORPUSCULAR VOLUME 88 fL (80-96); MONOCYTES # (AUTO) 0.9 K/uL (0.1-1.30); MONOCYTES % (AUTO) 9.2 % (2.0-12.0); NEUTROPHILS # (AUTO) 6.6 K/uL (1.8-8.9); NEUTROPHILS % (AUTO) 71.6 % (43.0-81.0); PLATELET COUNT (AUTO) 118 K/uL (150-450); RED BLOOD CELL COUNT(AUTO) 3.38 MIL/uL (4.5-6.0); WHITE BLOOD COUNT (AUTO) 9.2 K/uL (4.3-11.0)
--- NOTE | 2022-06-23 05:00 | NUR ---
ICU/INCOMING FREIGHT CLERK PM MEDICATION GIVEN ALONG WITH PRN HYDRALAZINE FOR SBP 170'S. WILL MONITOR THIS PT.
[2022-06-23] MEDS: hydrALAZINE HCL IV 20 MG VIAL IV PRN (05:05)
[2022-06-23] MEDS: CLONIDINE HCL 0.1 MG TABLET GT SCH ×3 (05:05→21:04)
--- NOTE | 2022-06-23 07:00 | NUR ---
RN OPENING NOTES RECEIVED REPORT FROM [facility] CLAIRE LARIOS. PATIENT REMAINS INTUBATED, TOLERATING SETTINGS WELL. OXYGEN SATURATION IN HIGH 90S. SEDATED ON PROPOFOL, RUNNING PER [facility] PROTOCOL. SINUS RHYTHM ON BEDSIDE MONITOR AT THIS TIME. OROGASTRIC TUBE IN PLACE. FEEDING PAUSED FOR NOW DUE TO HIGH RESIDUAL. PER [facility] NURSE, PATIENT "MOVES AROUND A LOT". IV ACCESS ON LEFT UPPER ARM MIDLINE. LEFT FOREARM FISTULA NOTED. SAFETY MEASURES IMPLEMENTED. SIDE RAILS UP CALL LIGHT WITHIN REACH. WILL CONTINUE PLAN OF CARE AND ANTICIPATE NEEDS.
[2022-06-23] MEDS: PANTOPRAZOLE 40 MG VIAL IV SCH ×2 (08:30→16:05)
[2022-06-23] MEDS: LABETALOL HCL (100MG) 100 MG TABLET PO SCH ×2 (08:30→16:00)
[2022-06-23] MEDS: SEVELAMER CARBONATE 800 MG POWD.PACK GT SCH ×3 (08:30→17:33)
[2022-06-23] MEDS: NITROGLYCERIN 30 GM TUBE TP SCH ×2 (08:31→21:04)
[2022-06-23] MEDS: hydrALAZINE HCL 50 MG TABLET GT SCH ×3 (08:31→16:00)
[2022-06-23] MEDS: NEPRO 1,000 ML BOTTLE GT SCH (15:33)
--- NOTE | 2022-06-23 15:45 | NUR ---
GASTRIC RESIDUAL LESS THAN 5 MLS. TUBE FEEDING NEPRO RESUMED AT 20 MLS HOUR. WILL ASSESS RESIDUAL AND MOVE RATE TO GOAL OF 35 MLS/HR SHIFT PROGRESSES
--- NOTE | 2022-06-23 16:00 | NUR ---
1700 ANTIHYPERTENSIVE MEDICATIONS HELD. PATIENT TO UNDERGO HEMODIALYSIS AT 1630 TODAY.
[2022-06-23] MEDS: CEFEPIME 1 GM in IV D5W 50 ML IV SCH (16:05)
--- NOTE | 2022-06-23 19:06 | NUR ---
HAND OFF REPORT GIVEN TO LAUREEN FOR CONTINUATION OF CARE.
--- NOTE | 2022-06-23 20:00 | NUR ---
ICU NOTES Received patient sedated on Diprivan gtt at 65 mcg and currently intubated on full vent support as prescribed well tolerated.SPO2 98%-99%.Dx: Respiratory Failure and CHF.No acute distress noted.SR and hemodynamically stable.Patient on OGT feeding Nepro at 20 ml/hr.Placement verified no residual noted.Aspiration precaution maintain with HOB elevated.Anuric on HD.RA AVF positive bruit and thrill. IV Diprivan and NS at TKO both infusing to BRITTNEY ML site intact.Turned and repositioned to comfort. Safety precaution maintained.Continue monitoring.
[2022-06-23] MEDS: IV NS 0.9% 250 ML IV PRN (22:34)
[2022-06-24] VITALS (29 sets, daily range): BP systolic 123–161; BP diastolic 75–96
[2022-06-24] MEDS: PROPOFOL 100 ML IV PRN ×5 (02:53→20:37)
[2022-06-24 04:07] LABS: BASOPHILS # (AUTO) 0.1 K/uL (0.0-0.2); BASOPHILS % (AUTO) 0.8 % (0.0-2.0); EOSINOPHILS % (AUTO) 10.7 % (0.0-6.0); HEMATOCRIT 32 % (39-51); HEMOGLOBIN 10.4 g/dL (13.5-17.5); LYMPHOCYTES # (AUTO) 0.9 K/uL (0.8-4.8); LYMPHOCYTES % (AUTO) 10.1 % (20.0-44.0); MEAN CORPUSCULAR HGB CONC 33 g/dl (31.0-36.0); MEAN CORPUSCULAR VOLUME 89 fL (80-96); MONOCYTES # (AUTO) 0.9 K/uL (0.1-1.30); MONOCYTES % (AUTO) 9.8 % (2.0-12.0); NEUTROPHILS # (AUTO) 6.1 K/uL (1.8-8.9); NEUTROPHILS % (AUTO) 68.6 % (43.0-81.0); PLATELET COUNT (AUTO) 132 K/uL (150-450); RED BLOOD CELL COUNT(AUTO) 3.57 MIL/uL (4.5-6.0); WHITE BLOOD COUNT (AUTO) 8.8 K/uL (4.3-11.0)
[2022-06-24] MEDS: METOCLOPRAMIDE HCL 10 MG/2 ML VIAL IV SCH ×4 (04:18→21:11)
[2022-06-24] MEDS: CLONIDINE HCL 0.1 MG TABLET GT SCH ×3 (04:19→21:11)
[2022-06-24 04:33] LABS: CALCIUM, SERUM 10.1 mg/dL (8.5-10.1); CREATININE 6.3 mg/dL (0.6-1.3); POTASSIUM 5.1 mmol/L (3.5-5.1)
--- NOTE | 2022-06-24 07:00 | NUR ---
RN OPENING NOTES RECEIVED REPORT FROM [facility] NEWTON GARDUNO. PATIENT REMAINS INTUBATED, TOLERATING SETTINGS WELL. OXYGEN SATURATION AT 99%. SEDATED ON PROPOFOL, RUNNING PER [facility] PROTOCOL. SINUS RHYTHM ON BEDSIDE MONITOR AT THIS TIME. OROGASTRIC TUBE IN PLACE. FEEDING RUNNING AT 30 MLS/HR. THICK ORAL SECRETIONS NOTED, SUCTIONED ONCE. IV ACCESS ON LEFT UPPER ARM MIDLINE. LEFT FOREARM FISTULA NOTED. PATIENT TO UNDERGO PLACEMENT OF SWAN ELIZABETH CATHETER TODAY. CONSENT SIGNED IN PHYSICAL CHART. SAFETY MEASURES IMPLEMENTED. SIDE RAILS UP CALL LIGHT WITHIN REACH. WILL CONTINUE PLAN OF CARE AND ANTICIPATE NEEDS.
--- NOTE | 2022-06-24 07:06 | NUR ---
Patient resting in no acute distress.Vital signs remains stable.Patient tolerating vent settings. Tolerating OGT feeding.AM care done.All due medications administered.No BM noted during the shift. Patient for HD today and for Insertion of [place] Alicia Catheter with consent signed.Report given to day shift RN for CHANI.
[2022-06-24] MEDS: hydrALAZINE HCL 50 MG TABLET GT SCH ×3 (08:13→17:00)
[2022-06-24] MEDS: LABETALOL HCL (100MG) 100 MG TABLET PO SCH ×2 (08:13→17:00)
[2022-06-24] MEDS: PANTOPRAZOLE 40 MG VIAL IV SCH (08:13)
[2022-06-24] MEDS: SEVELAMER CARBONATE 800 MG POWD.PACK GT SCH ×3 (08:13→17:15)
[2022-06-24] MEDS: NITROGLYCERIN 30 GM TUBE TP SCH ×2 (08:13→21:11)
[2022-06-24 08:30] LABS: ABG BASE EXCESS -4.5 mmol/L; ABG PCO2 41.7 mmHg (35.0-45.0); ABG PH 7.325 (7.350-7.450); ABG PO2 101.9 mmHg (75.0-100.0); COHb 0.8 % (0.5-1.5); MetHb 0.5 % (0.0-1.5); O2Hb 95.7 % (94.0-97.0); SITE, ABG Right Radial
--- NOTE | 2022-06-24 11:45 | NUR ---
PATIENT BECAME TACHYPNEIC. SUCTIONED TWICE. NOW RESTING BREATHING EVENLY AND UNLABORED ON VENTILATOR.
[2022-06-24] MEDS: hydrALAZINE HCL IV 20 MG VIAL IV PRN (12:44)
--- NOTE | 2022-06-24 17:13 | NUR ---
SCHEDULED 1700 ANTIHYPERTENSIVES HELD. PATIENT UNDERGOING HEMODIALYSIS
[2022-06-24] MEDS: PANTOPRAZOLE 40 MG/PACK PACK GT SCH (17:15)
[2022-06-24] MEDS: CEFEPIME 1 GM in IV D5W 50 ML IV SCH (17:32)
--- NOTE | 2022-06-24 19:05 | NUR ---
HAND OFF REPORT GIVEN TO LAUREEN FOR CONTINUATION OF CARE.
--- NOTE | 2022-06-24 20:00 | NUR ---
Received patient sedated and intubated on full vent support.No acute distress noted.Hemodynamically stable.VS stable.SR.With ongoing tube feeding Nepro at 35 ml/hr well tolerated no residual noted.OGT placement verified.Maintained HOB elevated to prevent aspiration.Anuric on HD.Continue monitoring.
[2022-06-25] VITALS (47 sets, daily range): BP systolic 91–174; BP diastolic 50–91
--- NOTE | 2022-06-25 | NUR ---
Patient resting vs remains stable.Tolerating vent settings.Secretions suctioned PRN.Turned and repositioned.No acute distress noted.
[2022-06-25] MEDS: PROPOFOL 100 ML IV PRN ×2 (00:25→05:41)
[2022-06-25] MEDS: IV NS 0.9% 250 ML IV PRN (00:27)
[2022-06-25] MEDS: METOCLOPRAMIDE HCL 10 MG/2 ML VIAL IV SCH ×4 (04:09→21:31)
[2022-06-25] MEDS: CLONIDINE HCL 0.1 MG TABLET GT SCH ×3 (04:09→21:31)
[2022-06-25 04:22] LABS: BASOPHILS # (AUTO) 0.1 K/uL (0.0-0.2); BASOPHILS % (AUTO) 0.6 % (0.0-2.0); EOSINOPHILS % (AUTO) 7.8 % (0.0-6.0); HEMATOCRIT 32 % (39-51); HEMOGLOBIN 10.6 g/dL (13.5-17.5); LYMPHOCYTES # (AUTO) 0.7 K/uL (0.8-4.8); LYMPHOCYTES % (AUTO) 6.8 % (20.0-44.0); MEAN CORPUSCULAR HGB CONC 33 g/dl (31.0-36.0); MEAN CORPUSCULAR VOLUME 88 fL (80-96); MONOCYTES # (AUTO) 0.8 K/uL (0.1-1.30); NEUTROPHILS % (AUTO) 76.8 % (43.0-81.0); PLATELET COUNT (AUTO) 144 K/uL (150-450); RED BLOOD CELL COUNT(AUTO) 3.62 MIL/uL (4.5-6.0); WHITE BLOOD COUNT (AUTO) 10.4 K/uL (4.3-11.0)
[2022-06-25 04:38] LABS: CALCIUM, SERUM 10.4 mg/dL (8.5-10.1); CREATININE 6.3 mg/dL (0.6-1.3)
--- NOTE | 2022-06-25 06:35 | NUR ---
Patient remains sedated.VS stable.All due medications administered.AM care done.Turned and repositioned.Will start Nitroglycerin gtt at 0700 per protocol for weaning purposes as ordered. No significant change noted during the night.Will endorse to day shift for CHANI.
[2022-06-25] MEDS ORDERED: NTG 50 MG/D5W250 ML BOTTL 250 ML IV PRN (07:00)
--- NOTE | 2022-06-25 07:10 | NUR ---
EQUIP TECH Bedside report taken from [facility] nurse Marla GLEZ . pt sedated on propofol, w/d to pain in bue and ble, perrla, pt does not open eyes or follow commands but grimaces to pain. pt intubated on ac vent setting with fio2 30%, pt tolerating well. spo2 98%. johann lung sounds clear, diminished at bases. pt NSR/Stach on monitor hr 90-105, bue and ble pulses present. pt has ogt, positive placement verified. pt on nepro, tolerating well 0 ml residuals. bowel sounds present. pt anuric and on HD. pt skin intact. all lines traced. all drips verified. safety measures in place. will continue to monitor.
[2022-06-25] MEDS: hydrALAZINE HCL 50 MG TABLET GT SCH ×3 (08:09→16:03)
[2022-06-25] MEDS: LABETALOL HCL (100MG) 100 MG TABLET PO SCH (08:09)
[2022-06-25] MEDS: SEVELAMER CARBONATE 800 MG POWD.PACK GT SCH ×3 (08:10→17:03)
[2022-06-25] MEDS: PANTOPRAZOLE 40 MG/PACK PACK GT SCH ×2 (08:10→16:02)
[2022-06-25] MEDS: NITROGLYCERIN 30 GM TUBE TP SCH (09:00)
--- NOTE | 2022-06-25 09:03 | NUR ---
RN TRANSPLANT requested nitro paste from pharmacy, per pharmacy pt on nitro drip, pharmacy to contact md about order, hold dose for now. charge nurse Efraín RN aware Propofol off at this time per md order to wake pt up and wean. vitals stable. safety measures in place. will continue to monitor.
--- NOTE | 2022-06-25 09:15 | NUR ---
weaning trial below per dr. thomasno: simv 4 ps 15 fio2 30% peep 5 pt. is awake and follow commands Addendum: 06/25/22 at 0921 by CONSTANZA PEREZ RT Amended: Links added.
--- NOTE | 2022-06-25 09:15 | NUR ---
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 all sedation and propofol off. pt placed on weaning trial by RT. pt tolerating well. vitals stable. safety measures in place. will continue to monitor.
[2022-06-25 10:25] LABS: ABG BASE EXCESS -7.3 mmol/L; ABG OXYGEN SATURATION 96.3 % (92.0-98.5); ABG PCO2 38.3 mmHg (35.0-45.0); ABG PH 7.302 (7.350-7.450); ABG PO2 97.1 mmHg (75.0-100.0); AaDO2 71.8 mmHg; COHb 0.6 % (0.5-1.5); MetHb 0.7 % (0.0-1.5); PEEP,BG 5 cm H2O; SITE, ABG Right Radial; VT, ABG 450 mL
--- NOTE | 2022-06-25 10:39 | NUR ---
[place] MATE Dr Pretty at bedside assessing pt. pt unable to follow md orders, but tracks, per md he will come back at 1-2pm to reassess pt and and see if he is more alert by then and will reevaluate rediness for extubation. per md abg ok wants repeat abg 1215pm verbal order taken and order for abg entered per md. keep pt the same, keep sedation off and keep pt on weaning trial , RT informed of abg orders and md plans. no other orders at this time. charge nurse Efraín GLEZ aware.
[2022-06-25] MEDS: hydrALAZINE HCL IV 20 MG VIAL IV PRN (12:05)
--- NOTE | 2022-06-25 12:23 | NUR ---
SPORTS INTERNSHIP Pt sbp 160, scheduled hydraulizine and catapres given, nitro drip increased to 10 mcg. prn hydraulizine given. will continue to monitor.
[2022-06-25 12:56] LABS: ABG BASE EXCESS -6.1 mmol/L; ABG OXYGEN SATURATION 97.2 % (92.0-98.5); ABG PCO2 45.4 mmHg (35.0-45.0); ABG PH 7.274 (7.350-7.450); ABG PO2 107.3 mmHg (75.0-100.0); AaDO2 53.3 mmHg; MetHb 0.7 % (0.0-1.5); O2Hb 95.5 % (94.0-97.0); PEEP,BG 5 cm H2O; SITE, ABG Right Brachial; VENT MODE, BG SIMV 4 / PS15; VT, ABG 450 mL
--- NOTE | 2022-06-25 15:23 | NUR ---
ACREAGE REPORTER Pt bathed and cleaned. linen change done. skin check done, no new wounds noted. pt tolerated well. vitals stable. will continue to monitor.
--- NOTE | 2022-06-25 16:00 | NUR ---
CHIEF NURSING EXECUTIVE HD nurse at bedside to start dialysis. pt awake, on precedex, calm, vitals stable. safety measures in place. will continue to monitor.
[2022-06-25] MEDS: PRECEDEX 400 MCG/100 ML BOTTLE 100 ML IV PRN (16:02)
[2022-06-25] MEDS: LABETALOL HCL (100MG) 100 MG TABLET GT SCH (16:03)
--- NOTE | 2022-06-25 16:12 | NUR ---
back to AC16, 450, 30%, PEEP +[address] CARDOZA AND RESUME WEANING TOMORROW @ 8AM WITH SAME SETTINGS. Addendum: 06/25/22 at 1615 by CONSTANZA PEREZ RT Amended: Links added.
--- NOTE | 2022-06-25 18:20 | NUR ---
SQL DEVELOPER HD completed, pt tolerated well. nitro drip off at this time d/t low bp, 2 L removed with HD.
--- NOTE | 2022-06-25 19:06 | NUR ---
CUSTOMER SUPPORT PROFESSIONAL Bedside report given to [facility] nurse. Irina RN, pt on precedex, asleep but easily arousable. all lines traced. all drips verified. safety measures in place. pt clean and dry. no signs of acute distress at this time. morning weaning orders and vent settings reviewed and endorsed to [facility] nurse for AM nurse.
--- NOTE | 2022-06-25 19:53 | NUR ---
DIRECTOR OF SCIENCE. INITIAL ASSESSMENT. RECEIVED THE PT REST IN BED. ORALLY INTUBATED. SEDATED WITH PRECEDEX. ETT 7.5,LIP 24CM,AC 16,TV 450.FIO2 30%SAT 98%.HOB ELEVATED. WOOL SUPPLIER SHOWING NSR. IV LT FA AV FISTULA. RT UPPER ARM MID LINE.ALLYSSA SOFT WRIST RESTRAINT CHECKED AND RELEASED. NO INJURY OR REDNESS NOTED. WILL CONTINUE TO MONITOR VITALS.
[2022-06-26] VITALS (42 sets, daily range): BP systolic 92–149; BP diastolic 52–97
[2022-06-26] MEDS: PRECEDEX 400 MCG/100 ML BOTTLE 100 ML IV PRN (00:03)
--- NOTE | 2022-06-26 04:33 | NUR ---
LOGGING OPERATIONS INSPECTOR.AM CARE GIVEN.REMAINING SAMEVENT SETTINGS ON. SAT 99%. NO ACUTE DISTRESS NOTED.SPOTTER DRIVER SHOWING NSR, IV RT UPPER ARM PICC LINE., PRECEDEX 0.6MG RUNNING. HOB ELEVATED. OGT FEEDING TOLERATED WELL. TURN AND REPOSITION Q2H. WILL CONTINUE TO MONITOR VITALS.
[2022-06-26] MEDS: CLONIDINE HCL 0.1 MG TABLET GT SCH ×3 (04:42→20:20)
[2022-06-26] MEDS: METOCLOPRAMIDE HCL 10 MG/2 ML VIAL IV SCH ×4 (04:42→21:02)
--- NOTE | 2022-06-26 05:09 | NUR ---
silviculture forester. pt is not tolerated ngt feed. for now held. residual 300 ml
--- NOTE | 2022-06-26 06:11 | NUR ---
PT PLACED ON SIMV PER DR CARDOZA. SIMV 4, PS 15, +5, 30%. HIDE AND SKIN CLASSERNEWTON GARDUNO NOTIFIED.
[2022-06-26] MEDS ORDERED: POTASSIUM CL. PREMIX PERIPHER. 50 ML IV SCH (07:00)
--- NOTE | 2022-06-26 07:10 | NUR ---
LEG MAN OPENING NOTE: RECEIVED PT. IN BED, INTUBATED, SEDATED, OPENS EYES TO NAME AND PAINFUL STIMULI. ETT - 7.5/24; AC - 16; VT - 450; FIO2 - 30%; PEEP - 5. NO S/S OF RESPIRATORY DISTRESS. INJECTION MOLDING MACHINE SETTER READS NSR/SINUS TACH AT THIS TIME. SKIN INTACT. HAS OGT, FEEDING HELD AT THIS TIME DUE TO HIGH GASTRIC RESIDUAL PER ON CAR SUPERVISOR RN. IV ACCESS ON BRITTNEY MIDLINE, WITH NS TKO AND PRECEDEX AT 0.6 MCG/KG/HR; ALSO HAS R FOREARM #18G, PATENT AND SALINE LOCKED. IV SITE DRESSINGS C/D/I WITH NO S/S OF INFILTRATION. PT. HAS L FOREARM A/V FISTULA, THRILL AND BRUIT PRESENT. PT. ON SOFT BILATERAL WRIST RESTRAINTS, PALPABLE PULSES NOTED AND CAP REFILL < 3 SECS ON ALL EXTREMITIES. SAFETY MEASURES IN PLACE: BED IN LOWEST AND LOCKED POSITION, HOB ELEVATED AT 30 DEGREES, BED ALARM ON, CALL LIGHT WITHIN REACH, SIDE RAILS UP X2. WILL TURN AND REPOSITION IN BED AT LEAST Q2H. WILL CONTINUE TO MONITOR PT. FOR ANY CHANGES.
--- NOTE | 2022-06-26 07:36 | NUR ---
PT IS AWAKE BUT UNABLE TO FOLLOW COMMANDS RECEIVED ON VENT SUPPORT VIA ET TUBE WITH VENT SETTINGS BELOW ORDERED: SIMV 4 PS 15 FIO2 30% PEEP +5 Addendum: 06/26/22 at 0738 by CONSTANZA PEREZ RT Amended: Links added.
[2022-06-26 08:14] LABS: ABG BASE EXCESS -6.5 mmol/L; ABG OXYGEN SATURATION 97.3 % (92.0-98.5); ABG PCO2 42.7 mmHg (35.0-45.0); ABG PH 7.286 (7.350-7.450); ABG PO2 109.6 mmHg (75.0-100.0); AaDO2 54.1 mmHg; COHb 1.4 % (0.5-1.5); MetHb 0.7 % (0.0-1.5); O2Hb 95.3 % (94.0-97.0); PEEP,BG 5 cm H2O; SITE, ABG Right Brachial; VENT MODE, BG SIMV 4 / PS 14; VT, ABG 450 mL
--- NOTE | 2022-06-26 08:27 | NUR ---
back into AC 16, 450, 30%, PEEP +[address] CARDOZA. [place] NOTIFIED Addendum: 06/26/22 at 0829 by CONSTANZA PEREZ RT Amended: Links added.
[2022-06-26] MEDS: LABETALOL HCL (100MG) 100 MG TABLET GT SCH ×2 (09:00→17:00)
[2022-06-26] MEDS: hydrALAZINE HCL 50 MG TABLET GT SCH ×3 (09:00→17:00)
[2022-06-26] MEDS: PANTOPRAZOLE 40 MG/PACK PACK GT SCH ×2 (09:16→17:31)
[2022-06-26] MEDS: SEVELAMER CARBONATE 800 MG POWD.PACK GT SCH ×3 (09:16→17:31)
--- NOTE | 2022-06-26 09:18 | NUR ---
BLASTING CONTRACT MINER NOTE: APRESOLINE AND TANDRATE SCHEDULED AT 0900 WILL BE HELD DUE TO SCHEDULED HEMODIALYSIS TODAY. WILL CONTINUE TO MONITOR PT.'S HEMODYNAMIC STATUS.
--- NOTE | 2022-06-26 09:59 | NUR ---
ICE CREAM MACHINE OPERATOR NOTE: GASTRIC RESIDUAL AT 100 ML AND BLACK IN COLOR. REPORTED TO DR. GRIFFITHS AND DR. CARDOZA. WILL CONTINUE TO MONITOR FOR S/S OF BLEEDING.
[2022-06-26 10:01] LABS: CALCIUM, SERUM 10.8 mg/dL (8.5-10.1); POTASSIUM 5.5 mmol/L (3.5-5.1)
[2022-06-26 10:06] LABS: CREATININE 7.7 mg/dL (0.6-1.3)
--- NOTE | 2022-06-26 12:15 | NUR ---
GIS TECHNICIAN NOTE: GASTRIC RESIDUAL AT 80 ML. STILL BLACK IN COLOR. FEEDING STILL HELD. DR. GRIFFITHS AND DR. CARDOZA AWARE. WILL CONTINUE TO MONITOR S/S OF BLEEDING.
--- NOTE | 2022-06-26 12:48 | NUR ---
SLIME PLANT OPERATOR HELPER NOTE: APRESOLINE AND CATAPRES SCHEDULED AT 1300 WILL BE HELD DUE TO SCHEDULED HEMODIALYSIS TODAY.
[2022-06-26] MEDS: IV NS 0.9% 250 ML IV PRN (13:03)
--- NOTE | 2022-06-26 14:00 | NUR ---
DRYING MACHINE RECEIVER NOTE: LAB NOT ABLE TO DRAW CBC SCHEDULED AT 1000. FOLLOWED UP AND WHEN ARRIVED, HEMODIALYSIS ALREADY ONGOING. ANOTHER CBC SCHEDULED AT [address]. WILL LET DR[address] GRIFFITHS KNOW.
--- NOTE | 2022-06-26 16:10 | NUR ---
PARBOILER NOTE: HEMODIALYSIS (HD) STARTED AT 1400 AND ENDED AT 1600. GOT 2 LITERS OUT. VS STABLE AT THIS TIME. WILL CONTINUE TO MONITOR PT.'S HEMODYNAMIC STATUS.
--- NOTE | 2022-06-26 16:20 | NUR ---
SUPERVISOR PARK WORKERS NOTE: GASTRIC RESIDUAL AT 1600 STILL BLACK IN COLOR. GOT [address] GRIFFITHS MADE AWARE[address] TUBE FEEDING STILL ON HOLD.
--- NOTE | 2022-06-26 19:10 | NUR ---
BOWLING ALLEY MECHANIC CLOSING NOTE: PT. REMAINS IN BED, INTUBATED, SEDATED, OPENS EYES TO NAME AND PAINFUL STIMULI. STILL NOT ABLE TO FOLLOW COMMANDS. ETT - 7.5/24; AC - 16; VT - 450; FIO2 - 30%; PEEP - 5. NO S/S OF RESPIRATORY DISTRESS. COMPENSATION ADJUSTER READS NSR/SINUS TACH THE WHOLE SHIFT. HAS OGT, FEEDING HELD DUE TO COFFEE GROUND GASTRIC RESIDUAL. IV ACCESS ON BRITTNEY MIDLINE, WITH NS TKO; ALSO HAS R FOREARM #18G, PATENT AND SALINE LOCKED. IV SITE DRESSINGS C/D/I WITH NO S/S OF INFILTRATION. PT. HAS L FOREARM A/V FISTULA, THRILL AND BRUIT PRESENT. PT. ON SOFT BILATERAL WRIST RESTRAINTS, PALPABLE PULSES NOTED AND CAP REFILL < 3 SECS ON ALL EXTREMITIES. SAFETY MEASURES IN PLACE: BED IN LOWEST AND LOCKED POSITION, HOB ELEVATED AT 30 DEGREES, BED ALARM ON, CALL LIGHT WITHIN REACH, SIDE RAILS UP X2. TURNED AND REPOSITIONED IN BED AT LEAST Q2H. ENDORSED CONTINUITY OF CARE TO TOY ELECTRIC TRAIN REPAIRER NEWTON CRUZ.
--- NOTE | 2022-06-26 19:38 | NUR ---
FOOD SERVICE LEAD. INITIAL ASSESSMENT. RECEIVED THE PT REST IN BED. ORALLY INTUBATED. ETT 7.5, LIP 24,AC 16,TV 450, FIO2 30%,PEEP 5. SAT 98%. IT TEACHER SHOWING S TACH. IV RT UPPER ARM MID LINE. TKO RUNNING. PT IS NPO. WILL CONTINUE TO MONITOR.
[2022-06-26 19:53] LABS: BASOPHILS # (AUTO) 0.1 K/uL (0.0-0.2); BASOPHILS % (AUTO) 0.7 % (0.0-2.0); EOSINOPHILS % (AUTO) 2.7 % (0.0-6.0); HEMATOCRIT 37 % (39-51); HEMOGLOBIN 11.9 g/dL (13.5-17.5); LYMPHOCYTES # (AUTO) 0.7 K/uL (0.8-4.8); LYMPHOCYTES % (AUTO) 4.6 % (20.0-44.0); MEAN CORPUSCULAR HGB CONC 32 g/dl (31.0-36.0); MEAN CORPUSCULAR VOLUME 90 fL (80-96); MONOCYTES # (AUTO) 1.1 K/uL (0.1-1.30); MONOCYTES % (AUTO) 6.8 % (2.0-12.0); NEUTROPHILS % (AUTO) 85.2 % (43.0-81.0); PLATELET COUNT (AUTO) 247 K/uL (150-450); RED BLOOD CELL COUNT(AUTO) 4.12 MIL/uL (4.5-6.0); WHITE BLOOD COUNT (AUTO) 16.4 K/uL (4.3-11.0)
[2022-06-26] MEDS: ACETAMINOPHEN 650 MG/20.3 ML UDC PO PRN (20:19)
[2022-06-27] VITALS (58 sets, daily range): BP systolic 45–138; BP diastolic 23–70
[2022-06-27 02:46] LABS: BASOPHILS # (AUTO) 0.2 K/uL (0.0-0.2); BASOPHILS % (AUTO) 1.1 % (0.0-2.0); EOSINOPHILS % (AUTO) 2.4 % (0.0-6.0); HEMATOCRIT 37 % (39-51); HEMOGLOBIN 11.9 g/dL (13.5-17.5); LYMPHOCYTES # (AUTO) 0.8 K/uL (0.8-4.8); LYMPHOCYTES % (AUTO) 4.9 % (20.0-44.0); MEAN CORPUSCULAR HGB CONC 32 g/dl (31.0-36.0); MEAN CORPUSCULAR VOLUME 89 fL (80-96); MONOCYTES # (AUTO) 1.1 K/uL (0.1-1.30); MONOCYTES % (AUTO) 6.7 % (2.0-12.0); NEUTROPHILS # (AUTO) 14.1 K/uL (1.8-8.9); NEUTROPHILS % (AUTO) 84.9 % (43.0-81.0); PLATELET COUNT (AUTO) 285 K/uL (150-450); RED BLOOD CELL COUNT(AUTO) 4.13 MIL/uL (4.5-6.0); WHITE BLOOD COUNT (AUTO) 16.6 K/uL (4.3-11.0)
[2022-06-27] MEDS ORDERED: Calcium Chloride 13.6 MEQ/10ML VIAL IV ONE (04:14)
[2022-06-27] MEDS ORDERED: DEXTROSE 50%-WATER 50 ML VIAL IV ONE (04:14)
[2022-06-27] MEDS ORDERED: EPINEPHRINE (1:10,000) SYRINGE 1 MG/10 ML DISP.SYRIN IVP ONE (04:14)
[2022-06-27] MEDS: METOCLOPRAMIDE HCL 10 MG/2 ML VIAL IV SCH ×3 (04:37→15:20)
[2022-06-27] MEDS: CLONIDINE HCL 0.1 MG TABLET GT SCH ×3 (04:37→21:00)
[2022-06-27] MEDS: IV NS 0.9% 250 ML IV PRN (04:49)
[2022-06-27 05:27] LABS: ABG BASE EXCESS -11.2 mmol/L; ABG OXYGEN SATURATION 92.7 % (92.0-98.5); ABG PCO2 33.7 mmHg (35.0-45.0); ABG PO2 76.7 mmHg (75.0-100.0); AaDO2 97.6 mmHg; COHb 1.5 % (0.5-1.5); MetHb 0.5 % (0.0-1.5); O2Hb 90.8 % (94.0-97.0); PEEP,BG 5 cm H2O; SITE, ABG Right Brachial
--- NOTE | 2022-06-27 05:55 | NUR ---
DENTAL BILLING SPECIALIST. AM CARE GIVEN. REMAINING SAME VENT SETTINGS TOLERATED WELL. SAT 98%, NO ACUTE DISTRESS NOTED. MICROFILM EQUIPMENT INSPECTOR SHOWING S TACH. HON ELEVATED. TKO RUNNING. NGT INTACT. COFFEE COLOURED RESIDUAL. PT IS NPO. WILL CONTINUE TO MONITOR.
[2022-06-27] MEDS: ACETAMINOPHEN 650 MG/20.3 ML UDC PO PRN ×2 (06:58→15:30)
--- NOTE | 2022-06-27 07:10 | NUR ---
HARDWARE PRESS OPERATOR OPENING NOTE: RECEIVED PT. IN BED, INTUBATED, OBTUNDED, OPENS EYES TO TACTILE AND PAINFUL STIMULI. ETT - 7.5/24; AC - 16; VT - 450; FIO2 - 30%; PEEP - 5. TACHYPNEIC AT 25 BREATHS/MIN. MINE ENVIRONMENTAL ENGINEER READS SINUS TACH AT THIS TIME. SKIN INTACT. HAS OGT, FEEDING HELD AT THIS TIME DUE TO SUSPECTION OF GI BLEED SINCE YESTERDAY. IV ACCESS ON BRITTNEY MIDLINE, WITH NS TKO; ALSO HAS R FOREARM #18G, PATENT AND SALINE LOCKED. IV SITE DRESSINGS C/D/I WITH NO S/S OF INFILTRATION. PT. HAS L FOREARM A/V FISTULA, THRILL AND BRUIT PRESENT. PT. ON SOFT BILATERAL WRIST RESTRAINTS, PALPABLE PULSES NOTED AND CAP REFILL < 3 SECS ON ALL EXTREMITIES. SAFETY MEASURES IN PLACE: BED IN LOWEST AND LOCKED POSITION, HOB ELEVATED AT 30 DEGREES, BED ALARM ON, CALL LIGHT WITHIN REACH, SIDE RAILS UP X2. WILL TURN AND REPOSITION IN BED AT LEAST Q2H. WILL CONTINUE TO MONITOR PT. FOR ANY CHANGES.
--- NOTE | 2022-06-27 07:30 | NUR ---
CLOTH SHRINKING SUPERVISOR NOTE: PT. HAS NO ORDER FOR BMP TODAY, ONLY CBC. NOTIFIED DR. GRIFFITHS AND ASKED IF HE WANTS TO ORDER BMP, PHOS AND MAG DUE TO SCHEDULED HEMODIALYSIS TODAY. DR. GRIFFITHS SAID "NO". WILL FOLLOW ORDER.
[2022-06-27] MEDS: PANTOPRAZOLE 40 MG/PACK PACK GT SCH ×2 (08:57→17:05)
[2022-06-27] MEDS: SEVELAMER CARBONATE 800 MG POWD.PACK GT SCH ×3 (08:57→17:05)
[2022-06-27] MEDS: NEPRO 1,000 ML BOTTLE GT SCH (08:58)
[2022-06-27] MEDS: hydrALAZINE HCL 50 MG TABLET GT SCH ×3 (09:00→17:00)
[2022-06-27] MEDS: LABETALOL HCL (100MG) 100 MG TABLET GT SCH ×2 (09:00→17:00)
[2022-06-27] MEDS: PRECEDEX 400 MCG/100 ML BOTTLE 100 ML IV PRN (13:31)
[2022-06-27] MEDS ORDERED: IV NS 0.9% 500 ML IV ONE ×2 (14:30→16:00)
[2022-06-27] MEDS ORDERED: ALBUMIN 25% 25 GM in PREMIX 1 EA IV PRN (16:00)
--- NOTE | 2022-06-27 17:10 | NUR ---
CHILI POWDER MIXER NOTE: PT. NOTED TO HAVE TEMP OF 99.9F AT 1520. TYLENOL 650 MG GIVEN VIA OG TUBE AT 1530. RECHECKED TEMP AT 1700 AND GOT A TEMP OF 98.6F. WILL CONTINUE TO MONITOR PT.'S TEMP.
[2022-06-27] MEDS: PHENYLEPHRINE 50 MG in IV NS 0.9% 245 ML IV PRN ×2 (17:22→21:11)
--- NOTE | 2022-06-27 17:28 | NUR ---
AT BEDSIDE TO START ANGUS DRIP FOR BP SUPPORT . NS 500 ML BOLUS X 2 INEFFECTIVE . ONGOING EEG, PER TECHNICAL ENGINEER , SUDDEN SLOWING OF BRAIN WAVES NOTED. PT. HR NOTED TO DROP AT 40'S. NO PALPABLE FEMORAL PULSES NOTED. CODE BLUE CALLED. SEE CODE BLUE RECORD.
[2022-06-27] MEDS ORDERED: SODIUM BICARBONATE SYR 50 MEQ/50 ML DISP.SYRIN ONE (17:44)
[2022-06-27] MEDS ORDERED: CALCIUM CHLORIDE 1,000 MG/10 ML DISP.SYRIN ONE (17:44)
[2022-06-27] MEDS ORDERED: EPINEPHRINE (1:10,000) SYRINGE 1 MG/10 ML DISP.SYRIN ONE (17:44)
[2022-06-27 18:53] LABS: CALCIUM, SERUM 11.4 mg/dL (8.5-10.1)
[2022-06-27] MEDS ORDERED: NOREPINEPHRINE 32 MG in IV NS 0.9% 218 ML IV PRN (19:00)
[2022-06-27] MEDS ORDERED: Calcium Gluconate 0.465 MEQ/ML VIAL IV ONE ×2 (19:00→20:00)
--- NOTE | 2022-06-27 19:05 | NUR ---
BOX SPRING MAKER. INITIAL ASSESSMENT. RECEIVED THE PT REST IN BED. ORALLY INTUBATED. NO GAG OR COUGH REFLEX OGT INTACT, PT IS NPO, LEVOPHED 0.1MCG/KG/MIN, ANGUS 3 MCG/KG/MIN, PT IS VERY UNSTABLE. S/P CODE BLUE PATIENT
[2022-06-27 19:20] LABS: CREATININE 10.4 mg/dL (0.6-1.3); POTASSIUM 7.5 mmol/L (3.5-5.1)
--- NOTE | 2022-06-27 19:20 | NUR ---
LIBRARY SCIENCE INSTRUCTOR CLOSING NOTE: PT. REMAINS IN BED, INTUBATED, MOVES EYELIDS TO PAINFUL STIMULI. S/P CODE BLUE. ETT - 7.5/24; AC - 16; VT - 450; FIO2 - 100%; PEEP - 5. NO S/S OF RESPIRATORY DISTRESS AT THIS TIME. ASSISTED LIVING NURSING DIRECTOR READS SINUS TACH AT 113 BPM. SKIN INTACT. HAS OGT, FEEDING HELD POST CODE BLUE. IV ACCESS ON BRITTNEY MIDLINE, WITH NS TKO, NEOSYNEPHRINE AT 3 MCG/KG/MIN, LEVOPHED DRIP AT 0.1 MCG/KG/MIN; ALSO HAS R FOREARM #18G, PATENT AND SALINE LOCKED. IV SITE DRESSINGS C/D/I WITH NO S/S OF INFILTRATION. PT. HAS L FOREARM A/V FISTULA, THRILL AND BRUIT PRESENT. PT. ON SOFT BILATERAL WRIST RESTRAINTS, PALPABLE PULSES NOTED AND CAP REFILL < 3 SECS ON ALL EXTREMITIES. SAFETY MEASURES MAINTAINED: BED IN LOWEST AND LOCKED POSITION, HOB ELEVATED AT 30 DEGREES, BED ALARM ON, CALL LIGHT WITHIN REACH, SIDE RAILS UP X2. TURNED AND REPOSITIONED IN BED AT LEAST Q2H. ENDORSED CONTINUITY OF CARE TO SPRING LAYER RN NANCY.
[2022-06-27] MEDS ORDERED: INSULIN REGULAR, HUMAN 100 UNIT/ML 3 ML VIAL IV ONE (19:30)
[2022-06-27] MEDS ORDERED: DEXTROSE 50%-WATER 50 ML DISP.SYRIN IVP ONE ×2 (19:30→21:00)
[2022-06-27] MEDS ORDERED: SODIUM POLYSTYRENE SULFONATE 15 G/60 ML BOTTLE RC ONE (20:00)
[2022-06-27] MEDS ORDERED: SODIUM POLYSTYRENE SULFONATE 15 G/60 ML BOTTLE PO ONE (20:00)
--- NOTE | 2022-06-27 20:00 | NUR ---
TELEPHONE AD TAKER. DR RIOS CALLED UPDATE GIVEN, NEW ORDER RECEIVED. DR RIOS STATED PT IS NOT STABLE FOR DIALYSIS NOW. REPEAT BMP 2300.
[2022-06-27 20:13] LABS: BASOPHILS # (AUTO) 0.1 K/uL (0.0-0.2); BASOPHILS % (AUTO) 0.6 % (0.0-2.0); EOSINOPHILS % (AUTO) 1.4 % (0.0-6.0); HEMATOCRIT 38 % (39-51); HEMOGLOBIN 11.9 g/dL (13.5-17.5); LYMPHOCYTES # (AUTO) 1.5 K/uL (0.8-4.8); LYMPHOCYTES % (AUTO) 6.5 % (20.0-44.0); MEAN CORPUSCULAR HGB CONC 31 g/dl (31.0-36.0); MEAN CORPUSCULAR VOLUME 93 fL (80-96); MONOCYTES # (AUTO) 0.7 K/uL (0.1-1.30); MONOCYTES % (AUTO) 3.3 % (2.0-12.0); NEUTROPHILS # (AUTO) 19.6 K/uL (1.8-8.9); NEUTROPHILS % (AUTO) 88.2 % (43.0-81.0); PLATELET COUNT (AUTO) 377 K/uL (150-450); RED BLOOD CELL COUNT(AUTO) 4.07 MIL/uL (4.5-6.0); WHITE BLOOD COUNT (AUTO) 22.3 K/uL (4.3-11.0)
--- NOTE | 2022-06-27 20:30 | NUR ---
TICKET AGENT. ABNORMAL POTASSIUM LEVEL DAY SHIFT RN NOTIFIED DR GRIFFITHS. NEW ORDER RECEIVED, THEN TEXTED FOLLOW UP WITH CARDIOLOGY. CALLED AND NOTIFIED DR CHIN.
--- NOTE | 2022-06-27 20:30 | NUR ---
GERICARE AIDE TEACHER. BLOOD SUGAR 30. NOTIFIED MD JARRETT. D50% DEXTROSE IV GIVEN. 15 MTS LATTER BLOOD SUGAR CHECK RESULT 138.
--- NOTE | 2022-06-27 21:13 | NUR ---
HOUSING ASSISTANT. CATAPRES NOT GIVEN, BLOOD PRESSURE IS LOW ANGUS LEVO MAX OUT
--- NOTE | 2022-06-27 21:18 | NUR ---
SERVICE DESK AGENT. IS SUPPORT ANALYST SPOKE WITH PT SISTERS , THEY DECIDED TO CODE STATUS CHANGED TO DNR.
[2022-06-27] MEDS ORDERED: VASOPRESSIN INJ 20 UNIT/ML VIAL ONE (21:30)
[2022-06-27] MEDS ORDERED: VASOPRESSIN INJ 40 UNIT in IV NS 0.9% 38 ML IV PRN ×4 (21:30)
[2022-06-27 21:44] LABS: BAND % (MANUAL) 3 % (0.0-5.0); EOSINOPHILS % (MANUAL) 2 % (0-4); LYMPHOCYTES % (MANUAL) 16 % (16-48); MONOCYTES % (MANUAL) 3 % (0-11.0); NEUTROPHILS % (MANUAL) 76 (42-76)
[2022-06-27] MEDS ORDERED: EPINEPHRINE (1:1000) 10 MG in IV NS 0.9% 240 ML IV PRN (23:30)
[2022-06-27 23:35] LABS: CALCIUM, SERUM 11.5 mg/dL (8.5-10.1)
[2022-06-27] MEDS ORDERED: EPINEPHRINE (1:1000) MDV 30 MG/30ML VIAL ONE (23:39)
[2022-06-27 23:40] LABS: POTASSIUM 7.1 mmol/L (3.5-5.1)
--- NOTE | 2022-06-28 | NUR ---
BUSINESS DEPARTMENT CHAIR. AROUND 2340 PT HEART RATE WENT DOWN TO [facility]. PT IS DNR. FAMILY AT BED SIDE. PRONOUNCED AT 2350 DIRECT MARKETING ANALYST ED .PT WAS LEVO,ANGUS, VASO MAX OUT, 2244 JUST STARTED EPI DRIP. NOTIFIED [facility] AT 0000. SPOKE PERSON WAS [facility]. CASE # [id number]. BODY RELEASED. NO CANDIDATE FOR ORGAN DONATION, POST MORTEM CARE GIVEN. BODY SEND TO THE [facility].
== END 2022-06-27 23:50 | DRG 720 ==
LOC: ER 16:56 → ICU 22:35 → UNDODISIN 06-28 04:15
PROVIDERS: ADMIT Student in an Organized Health Care Education/Training Program; ATTEND Internal Medicine
PROC: 5A09457 Assistance with Respiratory Ventilation, 24-96 Consecutive Hours, Continuous Positive Airway Pressure (ICD-10-PCS; principal; 2022-06-16)
PROC: 5A1955Z Respiratory Ventilation, Greater than 96 Consecutive Hours (ICD-10-PCS; 2022-06-16)
PROC: 5A1D70Z Performance of Urinary Filtration, Intermittent, Less than 6 Hours Per Day (ICD-10-PCS; 2022-06-16)
PROC: 0BH18EZ Insertion of Endotracheal Airway into Trachea, Via Natural or Artificial Opening Endoscopic (ICD-10-PCS; 2022-06-18)
PROC: 30233N1 Transfusion of Nonautologous Red Blood Cells into Peripheral Vein, Percutaneous Approach (ICD-10-PCS; 2022-06-18)
PROC: 5A2204Z Restoration of Cardiac Rhythm, Single (ICD-10-PCS; 2022-06-27)
DX: A41.1 Sepsis due to other specified staphylococcus (principal); J96.01 Acute respiratory failure with hypoxia; J69.0 Pneumonitis due to inhalation of food and vomit; G92.8 Other toxic encephalopathy; I50.33 Acute on chronic diastolic (congestive) heart failure; D63.8 Anemia in other chronic diseases classified elsewhere; E83.39 Other disorders of phosphorus metabolism; E87.1 Hypo-osmolality and hyponatremia; N18.6 End stage renal disease; I16.1 Hypertensive emergency; I13.2 Hypertensive heart and chronic kidney disease with heart failure and with stage 5 chronic kidney disease, or end stage renal disease; Z66 Do not resuscitate; Z99.2 Dependence on renal dialysis; Z79.899 Other long term (current) drug therapy; I05.0 Rheumatic mitral stenosis; I27.20 Pulmonary hypertension, unspecified; M89.8X9 Other specified disorders of bone, unspecified site; E87.5 Hyperkalemia; Z20.822 Contact with and (suspected) exposure to COVID-19
CPT/HCPCS: 31720; 36415; 36600; 70450-TC; 71045-TC; 80048-TC; 80076-TC; 80202-TC; 82040-TC; 82803-TC; 82962-TC; 83605-TC; 83735-TC; 83880; 84100-TC; 84478-TC; 84484-TC; 85025-TC; 85730-TC; 86706; 86803; 86850-TC; 87040-TC; 87081-TC; 87340; 87806; 90935-TC; 93307-TC; 94002-TC; 94003-TC; 94660; 94760-TC; 94799-TC; 95819-TC; A6403; C9113; G0378; J0171; J0360; J0610; J0692; J0696; J1815; J2060; J2370; J2765; J3370; J3490; J7030; J7040; J7050; J7060; P9016